=== PATIENT | female | born 1955 | race Caucasian/White ===

== ENCOUNTER 2019-01-06 09:42 | Observation (INO) | payer OTHER ==
[2019-01-06] MEDS ORDERED: NITROGLYCERIN 0.4 MG/TAB SL ONE (10:09)
[2019-01-06 10:16] LABS: Absolute Lymphocytes (CBC) 1.1 K/uL (0.7-4.9); Basophils % 0.5 % (0-1.3); Hematocrit 41.2 % (36.0-45.0); Lymphocytes % 17.5 % (15.3-44.8); MPV 8.1 fL (7.6-11.3)
[2019-01-06 10:42] LABS: ALT/SGPT 16 U/L (12-78); AST/SGOT 12 U/L (15-37); Albumin 3.5 g/dL (3.4-5.0); Alkaline Phosphatase 114 U/L (45-117); BUN Blood Urea Nitrogen 10 mg/dL (7-18); Bicarbonate 27 mmol/L (21-32); Bilirubin Direct 0.1 mg/dL (0-0.2); Bilirubin Total 0.5 mg/dL (0.2-1.0); Glucose Level 132 mg/dL (74-106); Lipase 164 U/L (73-393); NT PRO-BNP 170 pg/mL (<125); Potassium 3.8 mmol/L (3.5-5.1); Protein, Total 6.8 g/dL (6.4-8.2); Sodium Level 142 mmol/L (136-145); Troponin (Emerg Dept Use Only) < 0.02 ng/mL (0.0-0.045)
--- NOTE | 2019-01-06 11:10 | RAD REPORT ---
EXAM DESCRIPTION: [place] Single View01/06/2019 10:40 am CLINICAL HISTORY: Chest pain COMPARISON: none FINDINGS: The lungs appear clear of acute infiltrate. The heart is normal size IMPRESSION: No acute abnormalities displayed
--- NOTE | 2019-01-06 11:11 | ER ---
Nurse's Notes [facility] Name: Jessi Silva Age: 63 yrs Sex: Female : 1955 Arrival Date: 01/06/2019 Time: 09:42 Bed 4 Private MD: Cydney Kelly K Diagnosis: Chest pain, unspecified Presentation: 01/06 09:51 Presenting complaint: Patient states: Chest pain that began this morning. Transition of ss care: patient was not received from another setting of care. Onset of symptoms was January 06, 2019. Risk Assessment: Do you want to hurt yourself or someone else? Patient reports no desire to harm self or others. Initial Sepsis Screen: Does the patient meet any 2 criteria? No. Patient's initial sepsis screen is negative. Does the patient have a suspected source of infection? No. Patient's initial sepsis screen is negative. Care prior to arrival: None. 09:51 Acuity: EROS 3 ss 09:51 Method Of Arrival: Wheelchair ss Historical: - Allergies: 09:53 No Known Allergies; ss - PMHx: 10:13 Diaphragmatic Hernia; sg - PSHx: 10:13 Hernia repair; sg - Immunization history:: Adult Immunizations up to date. - Ebola Screening: : Patient denies exposure to infectious person Patient denies travel to an Ebola-affected area in the 21 days before illness onset. - Family history:: not pertinent. - Social history:: Smoking status: Patient/guardian denies using tobacco. - Hospitalizations: : No recent hospitalization is reported. Screenin:00 Abuse screen: Denies threats or abuse. Denies injuries from another. Nutritional sg screening: No deficits noted. Tuberculosis screening: No symptoms or risk factors identified. Never had TB. Fall Risk None identified. Assessment: 09:55 General: Appears in no apparent distress. well groomed, well developed, well nourished, sg Behavior is cooperative, appropriate for age, anxious. Pain: Complains of pain in anterior aspect of left upper chest Quality of pain is described as aching, sharp. Neuro: Level of Consciousness is awake, alert, obeys commands, Oriented to person, place, time, situation, Platform Attendant are equal bilaterally Moves all extremities. Full function Gait is steady, Speech is normal, Facial symmetry appears normal. Cardiovascular: Capillary refill is brisk in bilateral fingers Patient's skin is warm and dry. Chest pain is denied. Cardiovascular: Reports chest pain, lightheadedness, Heart tones S1 S2 present. Respiratory: Airway is patent Respiratory effort is even, unlabored, Respiratory pattern is regular, symmetrical. GI: Abdomen is round non-distended. : No signs and/or symptoms were reported regarding the genitourinary system. EENT: No signs and/or symptoms were reported regarding the EENT system. Derm: Skin is pink, warm \T\ dry. Musculoskeletal: Circulation, motion, and sensation intact. Range of motion: intact in all extremities. 10:08 Reassessment: Patient appears in no apparent distress at this time. order to sg repeat VS, if pressures consistent with 10 AM readings then administer Nitro as ordered, VS to be reassessed prior to administration. 10:22 Reassessment: Patient appears in no apparent distress at this time. pt medicated as sg ordered, See EMAR, XRAY at bedside. 10:30 Reassessment: Patient appears in no apparent distress at this time. Patient and/or sg family updated on plan of care and expected duration. Pain level reassessed. Patient is alert, oriented x 3, equal unlabored respirations, skin warm/dry/pink. pt reports feeling dizzy, notified of pt VS, orders received, see EMAR, will continue to monitor. 11:00 Reassessment: Patient appears in no apparent distress at this time. Patient and/or sg family updated on plan of care and expected duration. Pain level reassessed. Patient is alert, oriented x 3, equal unlabored respirations, skin warm/dry/pink. Patient states feeling better. 11:50 Reassessment: Patient appears in no apparent distress at this time. Patient and/or sg family updated on plan of care and expected duration. Pain level reassessed. awaiting a bed assignment at this time. 12:40 Reassessment: Patient appears in no apparent distress at this time. Patient and/or sg family updated on plan of care and expected duration. Pain level reassessed. Patient is alert, oriented x 3, equal unlabored respirations, skin warm/dry/pink. pt informed of room assignment, awaiting a call back from receiving nurse, will continue to monitor. Vital Signs: 09:51 BP 138 / 85; Pulse 81; Resp 18; Temp 97.4(TE); Pulse Ox 99% on R/A; ss 10:00 BP 118 / 62; Pulse 77; Resp 16; Temp 97.6; Pulse Ox 100% on R/A; Pain 6/10; sg 10:18 BP 127 / 72; Pulse 68; Resp 17; Pulse Ox 100% on R/A; sg 10:30 BP 75 / 46; Pulse 57; Resp 17; Pulse Ox 98% ; sg 10:56 BP 90 / 64; Pulse 66; ss 11:07 BP 128 / 83 RA (/reg); Pulse 68; Resp 16 S; Temp 97.6; Pulse Ox 100% ; sg 11:20 BP 133 / 79; Pulse 69; Resp 17; Pulse Ox 98% on R/A; Pain 4/10; sg ED Course: 09:42 Patient arrived in ED. as 09:43 Cydney Kelly MD is Private Physician. as 09:44 Wild Putnam MD is Attending Physician. rn 09:44 Ronn Melgoza RN is Primary Nurse. sg 09:51 Arm band placed on right wrist. ss 09:52 Triage completed. ss 09:58 EKG done, by ED staff, reviewed by Wild Putnam MD. ms 10:00 Patient has correct armband on for positive identification. Bed in low position. Call sg light in reach. Side rails up X2. Pulse ox on. NIBP on. 10:00 Initial lab(s) drawn, by me, sent to lab. Inserted saline lock: 22 gauge in right sg antecubital area, using aseptic technique. Blood collected. 10:41 XRAY Chest (1 view) In Process Unspecified. EDMS 10:50 IV discontinued, intact, bleeding controlled, No redness/swelling at site. Pressure sg dressing applied. 10:52 Inserted saline lock: 22 gauge in left upper arm, using aseptic technique. Blood sg collected. 11:09 Armani Lynn MD is Hospitalizing Provider. rn 11:39 Admitting physician to see patient. at bedside. sg 12:27 Assisted to bathroom. sg 12:45 No provider procedures requiring assistance completed. sg Administered Medications: 10:18 Drug: Nitroglycerin 0.4 mg Route: Sublingual; sg 10:30 Follow up: Response: Blood pressure is lowered; notified of pt VS, orders sg recieved see EMAR 10:52 Drug: NS 0.9% 500 ml Route: IV; Rate: bolus; Site: left upper arm; sg 11:35 Follow up: Response: No adverse reaction; Blood pressure is elevated; IV Status: sg Completed infusion; IV Intake: 500ml 11:10 Drug: Aspirin Chewable Tablet 324 mg Route: PO; sg 11:41 Follow up: Response: No adverse reaction sg Intake: 11:35 IV: 500ml; Total: 500ml. sg Outcome: 11:09 Decision to Hospitalize by Provider. rn 13:35 Patient left the ED. sg Signatures: Dispatcher [employer] EDMS Ronn Melgoza RN RN Janet Warren Maria ms Wild Putnam MD MD rn Smirch, Shelby, RN RN ss
--- NOTE | 2019-01-06 11:11 | EDPHYS ---
Physician Documentation [facility] Name: Jessi Silva Age: 63 yrs Sex: Female : 1955 Arrival Date: 01/06/2019 Time: 09:42 Bed 4 Private MD: Cydney Kelly K ED Physician Wild Putnam HPI: 01/06 09:55 This 63 yrs old Female presents to ER via Wheelchair with complaints of Chest rn Pain. 09:55 The patient or guardian reports chest pain that is located primarily in the substernal rn area. Onset: this morning. The pain radiates to the left arm. Associated signs and symptoms: Pertinent positives: nausea, vomiting. The chest pain is described as a pressure, squeezing. Duration: The patient or guardian reports a single episode, that is still ongoing. Modifying factors: The symptoms are alleviated by nothing. the symptoms are aggravated by nothing. Severity of pain: At its worst the pain was moderate in the emergency department the pain is unchanged. The patient has not experienced similar symptoms in the past. The patient has not recently seen a physician. Reports chest pain/tightness, began this morning, after waking up, 8/10, radiates to left shoulder, reports had left shoulder pain yesterday got better with tylenol. Did have procedure for diaphragmatic hernia 3 weeks ago, but has been doing fine. No leg swelling or hx of DVT/PE.. Historical: - Allergies: 09:53 No Known Allergies; ss - PMHx: 10:13 Diaphragmatic Hernia; sg - PSHx: 10:13 Hernia repair; sg - Immunization history:: Adult Immunizations up to date. - Ebola Screening: : Patient denies exposure to infectious person Patient denies travel to an Ebola-affected area in the 21 days before illness onset. - Family history:: not pertinent. - Social history:: Smoking status: Patient/guardian denies using tobacco. - Hospitalizations: : No recent hospitalization is reported. ROS: 09:55 Constitutional: Negative for fever, chills, and weight loss, Eyes: Negative for injury, rn pain, redness, and discharge, Neck: Negative for injury, pain, and swelling, Cardiovascular: + chest pain Respiratory: Negative for shortness of breath, cough, wheezing, and pleuritic chest pain, Abdomen/GI: Negative for abdominal pain, diarrhea, and constipation, MS/Extremity: Negative for injury and deformity, Skin: Negative for injury, rash, and discoloration, Neuro: Negative for headache, weakness, numbness, tingling, and seizure. Exam: 09:55 Constitutional: This is a well developed, well nourished patient who is awake, alert, rn appears uncomfortable Head/Face: Normocephalic, atraumatic. ENT: MMM Cardiovascular: Regular rate and rhythm. No pulse deficits. Respiratory: Clear bilaterally. No increased work of breathing, no retractions or nasal flaring. Abdomen/GI: soft, non-tender MS/ Extremity: Pulses equal, no cyanosis. Neurovascular intact. Full, normal range of motion. Equal circumference. Neuro: Awake and alert, GCS 15, oriented to person, place, time, and situation. Cranial nerves II-XII grossly intact. Motor strength 5/5 in all extremities. Sensory grossly intact. 11:02 ECG was reviewed by the Attending Physician. rn Vital Signs: 09:51 BP 138 / 85; Pulse 81; Resp 18; Temp 97.4(TE); Pulse Ox 99% on R/A; ss 10:00 BP 118 / 62; Pulse 77; Resp 16; Temp 97.6; Pulse Ox 100% on R/A; Pain 6/10; sg 10:18 BP 127 / 72; Pulse 68; Resp 17; Pulse Ox 100% on R/A; sg 10:30 BP 75 / 46; Pulse 57; Resp 17; Pulse Ox 98% ; sg 10:56 BP 90 / 64; Pulse 66; ss 11:07 BP 128 / 83 RA (/reg); Pulse 68; Resp 16 S; Temp 97.6; Pulse Ox 100% ; sg 11:20 BP 133 / 79; Pulse 69; Resp 17; Pulse Ox 98% on R/A; Pain 4/10; sg MDM: 09:44 Patient medically screened. rn 11:06 Differential diagnosis: acute myocardial infarction, coronary artery disease chest wall rn pain, costochondritis, esophagitis, gastritis, gastroesophageal reflux disease (GERD), pericarditis, pleurisy, pneumothorax, stable angina, unstable angina. The patient was given aspirin in the Emergency Department. Data reviewed: vital signs, nurses notes, and as a result, I will admit patient. 11:07 Counseling: I had a detailed discussion with the patient and/or guardian regarding: the rn historical points, exam findings, and any diagnostic results supporting the discharge/admit diagnosis, lab results, radiology results, the need for further work-up and treatment in the hospital. Response to treatment: the patient's symptoms have mildly improved after treatment, and as a result, I will admit patient. Admission orders: after a detailed discussion of the patient's condition and case, the admit orders are written by me. ED course: Pt with slight improvement of chest pain with nitro, but extremely sensitive, BP dropped from 120s to 60s, with diaphoresis, will admit to Dr. yLnn for further eval of chest pain.. 01/06 09:54 Order name: Basic Metabolic Panel; Complete Time: 10:49 01/06 09:54 Order name: CBC with Diff; Complete Time: : 01/06 09:54 Order name: LFT's; Complete Time: 10: 01/06 09:54 Order name: NT PRO-BNP; Complete Time: 10: 01/06 09:54 Order name: Troponin (emerg Dept Use Only); Complete Time: 10:49 01/06 09:54 Order name: Lipase; Complete Time: 10:49 01/06 09:54 Order name: XRAY Chest (1 view); Complete Time: 11:16 01/06 09:54 Order name: EKG; Complete Time: 09:55 01/06 11:19 Order name: CONS Physician Consult [facility] 01/06 11:19 Order name: Echo with Doppler [facility] 01/06 12:30 Order name: CT [facility] 01/06 09:54 Order name: Cardiac monitoring; Complete Time: :58 01/06 09:54 Order name: EKG - Nurse/Tech; Complete Time: :58 01/06 09:54 Order name: IV Saline Lock; Complete Time: : 01/06 09:54 Order name: Labs collected and sent; Complete Time: :58 01/06 09:54 Order name: O2 Per Protocol; Complete Time: :58 01/06 09:54 Order name: O2 Sat Monitoring; Complete Time: : 01/06 11:19 Order name: [facility] Healthy [facility] EC:02 Rate is 71 beats/min. Rhythm is regular. QRS Meta is Normal. SC interval is normal. QRS rn interval is normal. QT interval is normal. No Q waves. T waves are Normal. No ST changes noted. Clinical impression: Normal ECG. Interpreted by me. Reviewed by me. Administered Medications: 10:18 Drug: Nitroglycerin 0.4 mg Route: Sublingual; sg 10:30 Follow up: Response: Blood pressure is lowered; notified of pt VS, orders sg recieved see EMAR 10:52 Drug: NS 0.9% 500 ml Route: IV; Rate: bolus; Site: left upper arm; sg 11:35 Follow up: Response: No adverse reaction; Blood pressure is elevated; IV Status: sg Completed infusion; IV Intake: 500ml 11:10 Drug: Aspirin Chewable Tablet 324 mg Route: PO; sg 11:41 Follow up: Response: No adverse reaction sg Disposition: 01/06/19 11:09 Hospitalization ordered by Armani Lynn for Observation. Preliminary diagnosis is Chest pain, unspecified. - Bed requested for Telemetry/MedSurg (observation). - Status is Observation. sg - Condition is Stable. - Problem is new. - Symptoms have improved. UTI on Admission? No Signatures: Dispatcher [employer] EDMS Ronn Melgoza RN RN Wild Putnam MD MD rn Smirch, Shelby RN CARY Gómez Regan RN RN ja1 Corrections: (The following items were deleted from the chart) 12:35 11:09 Hospitalization Ordered by Armani Lynn MD for Observation. Preliminary ja1 diagnosis is Chest pain, unspecified. Bed requested for Telemetry/MedSurg (observation). Status is Observation. Condition is Stable. Problem is new. Symptoms have improved. UTI on Admission? No. rn 13:35 12:35 01/06/2019 11:09 Hospitalization Ordered by Armani Lynn MD for Observation. sg Preliminary diagnosis is Chest pain, unspecified. Bed requested for Telemetry/MedSurg (observation). Status is Observation. Condition is Stable. Problem is new. Symptoms have improved. UTI on Admission? No. ja1
[2019-01-06] MEDS ORDERED: ASPIRIN 81 MG CHEWABLE TABLET ONE (11:15)
--- NOTE | 2019-01-06 11:58 | P.HP ---
Certification for Inpatient Patient admitted to: Observation With expected LOS: <2 Midnights Practitioner: I am a practitioner with admitting privileges, knowledge of patient current condition, hospital course, and medical plan of care. Services: Services provided to patient in accordance with Admission requirements found in Title 42 Section 412.3 of the Code of Federal Regulations Patient History Date of Service: 01/06/19 Reason for admission: Chest pain History of Present Illness: Patient is 63 years of age admitted with chest tightness came on suddenly apparently she had a links procedure done for diaphragmatic hernia on December 13 complaining of feeling clammy week denies any chest pain patient had a cardiac workup done prior to the operation which included a stress test that was unremarkable any risk factors for coronary artery disease no history of diabetes hypertension no prior history of chest pain denies any history of dysphagia - Past Medical/Surgical History -: Of diaphragmatic hernia -: Linx procedure for medic hernia repair on December 13, 2018 Review of Systems 10-point ROS is otherwise unremarkable Physical Examination - Vital Signs Temperature: 97.4 F Blood Pressure: 138/85 Pulse: 81 Respirations: 18 Pulse Ox (%): 99 - Physical Exam General: Alert, Oriented x3 HEENT: Atraumatic Neck: Supple Respiratory: Clear to auscultation bilaterally, Normal air movement Cardiovascular: No edema, Normal pulses, Regular rate/rhythm Gastrointestinal: Normal bowel sounds, Soft and benign, Non-distended, No tenderness - Studies Laboratory Data (last 24 hrs) 01/06/19 10:00: WBC 6.1, Hgb 14.0, Hct 41.2, Plt Count 172 01/06/19 10:00: Sodium 142, Potassium 3.8, BUN 10, Creatinine 0.69, Glucose 132 H, Total Bilirubin 0.5, AST 12 L, ALT 16, Alkaline Phosphatase 114, Lipase 164 Assessment and Plan - Problems (Diagnosis) (1) Chest discomfort Current Visit: Yes Status: Acute Plan: Patient is 63 years of age admitted with sudden onset of chest discomfort for prior history of coronary artery disease no risk factors does not smoke nor diabetes or hypertension. Patient recently had a links procedure done on December 13, 2018 for diaphragmatic hernia repair. She denies any dysphagia or reflux patient's chest x-ray is normal I have ordered a CT pulmonary angiogram rule out thromboembolism due to his recent surgery denies any abdominal disc - Advance Directives Does patient have a Living Will: No Does patient have a Durable POA for Healthcare: No
--- NOTE | 2019-01-06 12:27 | RAD REPORT ---
EXAM DESCRIPTION: CT - Chest Angio - 01/06/2019 12:09 pm CLINICAL HISTORY: Chest pain COMPARISON: None. TECHNIQUE: Dynamically enhanced axial 3 mm thick images of the chest were obtained during administra tion of <100> mL Isovue 370 IV contrast. Coronal and oblique reconstruction images were generated and reviewed. Exam utilizes a protocol for optimal evaluation of pulmonary arterial tree. Maximum intensity projections 3D imaging was utilized All CT scans are performed using dose optimization technique as appropriate and may include automated exposure control or mA/KV adjustment according to patient size. FINDINGS: A pulmonary embolus is not seen. A thoracic aortic aneurysm is not noted. Small left pleural effusion. . A pericardial effusion is not seen. Mild ground-glass opacities within the lingula. Minimal left lower lobe atelectasis IMPRESSION: Negative for a pulmonary embolism. Mild ground-glass opacity within the lingula indicates mild alveolitis
[2019-01-06] MEDS ORDERED: LORAZEPAM 0.5 MG TABLET PO PRN (13:53)
[2019-01-06] MEDS: ACETAMINOPHEN 500 MG TAB PO PRN (14:02)
[2019-01-06 14:23] VITALS: BMI 27.4
[2019-01-06] MEDS ORDERED: TRAMADOL HCL 50 MG TAB PO PRN (15:35)
[2019-01-07] MEDS: ACETAMINOPHEN 500 MG TAB PO PRN ×2 (04:16→17:11)
[2019-01-07 06:27] LABS: Hematocrit 37.2 % (36.0-45.0); MPV 8.5 fL (7.6-11.3); RBC Red Blood Cell Count 4.32 M/uL (3.86-4.86)
[2019-01-07 06:44] LABS: BUN Blood Urea Nitrogen 8 mg/dL (7-18); Bicarbonate 27 mmol/L (21-32); Glucose Level 97 mg/dL (74-106); Potassium 3.9 mmol/L (3.5-5.1); Sodium Level 140 mmol/L (136-145)
[2019-01-07] MEDS: ASPIRIN EC 81 MG TAB PO SCH (08:42)
--- NOTE | 2019-01-07 09:12 | EKG ---
Test Date: 2019-01-06 Test Time: 09:52:08 Superintendent Storage Area: SWG MEASUREMENT RESULTS: Intervals: Rate: 71 TX: 140 QRSD: 80 QT: 384 QTc: 417 [place]: P: 58 TX: 140 QRS: 2 T: 43 INTERPRETIVE STATEMENTS: Normal sinus rhythm Normal ECG Compared to ECG 10/03/2017 11:24:21 No significant changes Electronically Signed On 01-07-19 09:11:48 SUPPLY CHAIN DEVELOPMENT MANAGER by Aubrey Lindsay
--- NOTE | 2019-01-07 12:37 | RAD REPORT ---
EXAM DESCRIPTION: RAD - Chest Pa And Lat (2 Views) - 01/07/2019 7:09 am CLINICAL HISTORY: ches tpain Chest pain. COMPARISON: Chest Single View dated 01/06/2019; Chest Angio dated 01/06/2019 FINDINGS: Minimal right and a small left pleural effusion is present. Diffuse emphysematous changes are present. The heart is mildly enlarged in size. No displaced fractures.
[2019-01-08 05:56] VITALS: O2SAT 99
[2019-01-08] MEDS: ASPIRIN EC 81 MG TAB PO SCH (08:20)
[2019-01-08] MEDS ORDERED: AMLODIPINE 2.5 MG TAB PO SCH ×2 (09:00→13:46)
[2019-01-08 09:23] VITALS: TEMP 97.8
[2019-01-08 13:15] VITALS: BP 119/65
--- NOTE | 2019-01-08 17:27 | P.SSS ---
Patient History Date of Service: 01/08/19 Reason for admission: Chest pain History of Present Illness: Patient is 63 years of age admitted with chest tightness came on suddenly apparently she had a links procedure done for diaphragmatic hernia on December 13 complaining of feeling clammy week denies any chest pain patient had a cardiac workup done prior to the operation which included a stress test that was unremarkable any risk factors for coronary artery disease no history of diabetes hypertension no prior history of chest pain denies any history of dysphagia Allergies No Known Allergies Allergy (Verified 01/06/19 13:47) Home Medications: Amlodipine [Norvasc*] 2.5 mg PO DAILY #30 tab 01/08/19 - Past Medical/Surgical History Diabetic: No -: Of diaphragmatic hernia -: Linx procedure for medic hernia repair on December 13, 2018 - Family History Father History Unknown: Yes Mother Notes: kiran - Social History Smoking Status: Never smoker Alcohol use: No CD- Drugs: No Caffeine use: Yes Place of Residence: Home Review of Systems 10-point ROS is otherwise unremarkable Physical Examination - Vital Signs Temperature: 97.8 F Blood Pressure: 119/65 Pulse: 82 Respirations: 15 Pulse Ox (%): 96 - Physical Exam General: Alert, In no apparent distress HEENT: Atraumatic, PERRLA, Mucous membr. moist/pink, EOMI, Sclerae nonicteric Neck: Supple, 2+ carotid pulse no bruit, No LAD, Without JVD or thyroid abnormality Respiratory: Clear to auscultation bilaterally, Normal air movement Cardiovascular: Regular rate/rhythm, Normal S1 S2 Gastrointestinal: Normal bowel sounds, No tenderness Musculoskeletal: No tenderness Integumentary: No rashes Neurological: Normal gait, Normal speech, Normal strength at 5/5 x4 extr, Normal tone, Normal affect Lymphatics: No axilla or inguinal lymphadenopathy - Diagnosis (Problem(s)) (1) Esophageal spasm Status: Acute (2) Chest discomfort Status: Acute Treatment Summary: Overall during the hospital stay patient remained stable Patient initially came to the hospital for chest pain ACS rule out. Lab work and imaging study was done here in the hospital. Troponin x3 remained negative. Patient recently had an X Link placed between her diaphragm and esophagus. At [facility]. And GI doctor iMchel was consulted at [facility] initially for potential transfer. Dr. Michel during however recommended the patient can be started on low-dose amlodipine for possible esophageal spasms. After patient was started on low-dose amlodipine patient had marked improvement in her symptoms. At that time patient was discharged home for outpatient follow up with her GI doctor at [facility]. - Disposition Disposition: ROUTINE DISCHARGE Condition: GOOD Patient Discharge Instructions: Patient to be transferred to [facility] under the care of a GI physician Diet: Regular Activity: Ad bárbara
== END 2019-01-08 12:22 | disposition home or self-care (01) ==
LOC: SUPCPDRO 09:42 → ER 09:42 → ERHOLD 11:16 → 2ND 13:19
PROVIDERS: ADMIT Internal Medicine Sleep Medicine; ATTEND Family Medicine
DX: K22.4 Dyskinesia of esophagus (principal); R07.89 Other chest pain
CPT/HCPCS: 93005; 85025; 80048 ×2; 36415; 80076; 85027; 84484; 83690; 83880; 71275; 71045; 71046; 96360; 99284; Q9967; G0378 ×4

== ENCOUNTER 2019-02-20 15:40 | Inpatient (IN) | payer OTHER ==
[2019-02-20] MEDS ORDERED: MAGNE/ALUM HYDROXD 30 ML UCUP ONE (16:39)
[2019-02-20] MEDS ORDERED: LIDOCAINE VISCOUS 2% SOLN 15 ML UDC ONE (16:39)
--- NOTE | 2019-02-20 17:01 | RAD REPORT ---
EXAM DESCRIPTION: RAD - Chest Single View - 02/20/2019 4:40 pm CLINICAL HISTORY: COUGH Chest pain. COMPARISON: Chest Pa And Lat (2 Views) dated 01/07/2019; Chest Single View dated 01/06/2019 FINDINGS: Portable technique limits examination quality. Small bilateral pleural effusions are seen. The heart is moderately enlarged in size. No displaced fr actures. IMPRESSION: Moderate cardiomegaly. Small bilateral pleural effusions.
[2019-02-20 17:34] LABS: Absolute Lymphocytes (CBC) 0.9 K/uL (0.7-4.9); Basophils % 0.3 % (0-1.3); Hematocrit 41.1 % (36.0-45.0); Lymphocytes % 5.8 % (15.3-44.8); MPV 7.4 fL (7.6-11.3)
[2019-02-20] MEDS ORDERED: ONDANSETRON 4 MG/2 ML VIAL ONE (17:36)
[2019-02-20 17:37] LABS: Protime INR 1.23
[2019-02-20 17:51] LABS: ALT/SGPT 17 U/L (12-78); AST/SGOT 8 U/L (15-37); Albumin 3.4 g/dL (3.4-5.0); Alkaline Phosphatase 107 U/L (45-117); BUN Blood Urea Nitrogen 15 mg/dL (7-18); Bicarbonate 27 mmol/L (21-32); Bilirubin Total 0.8 mg/dL (0.2-1.0); Glucose Level 135 mg/dL (74-106); Magnesium 2.4 mg/dL (1.8-2.4); NT PRO-BNP 705 pg/mL (<125); Potassium 3.6 mmol/L (3.5-5.1); Protein, Total 7.5 g/dL (6.4-8.2); Sodium Level 135 mmol/L (136-145); Troponin (Emerg Dept Use Only) < 0.02 ng/mL (0.0-0.045)
--- NOTE | 2019-02-20 18:29 | RAD REPORT ---
EXAM DESCRIPTION: CT - Chest For Pe Angio - 02/20/2019 6:14 pm CLINICAL HISTORY: Chest pain. elevated ddimer, chest pain COMPARISON: Chest Angio dated 01/06/2019 TECHNIQUE: CT angiogram of the pulmonary arteries was performed with MIP. All CT scans are performed using dose optimization technique as appropriate and may include automated exposure control or mA/KV adjustment according to patient size. FINDINGS: No evidence of pulmonary thromboembolism. No acute aortic finding demonstrated. Moderate subsegmental atelectasis is present in both lung bases. Small bilateral pleural effusions, slightly greater on the right. Moderate pericardial effusion. No concerning bony finding. IMPRESSION: No evidence of pulmonary thromboembolism. Mild subsegmental atelectasis in both lung bases. Small bilateral pleural effusions with moderate pericardial effusion.
[2019-02-20 18:46] LABS: Blood Morphology Comment NOT SEEN (NOT SEEN); Platelet Estimate ADEQ; Urine White Blood Cell Casts OK
--- NOTE | 2019-02-20 18:53 | ER ---
Nurse's Notes [facility] Name: Jessi Silva Age: 63 yrs Sex: Female : 1955 Arrival Date: 02/20/2019 Time: 15:41 Bed 15 Private MD: Diagnosis: Chest pain Presentation: 02/20 15:44 Presenting complaint: Upper chest pain, nausea, and SOB since yesterday. Transition of care: patient was not received from another setting of care. Onset of symptoms was February 19, 2019. Risk Assessment: Do you want to hurt yourself or someone else? Patient reports no desire to harm self or others. Initial Sepsis Screen: Does the patient meet any 2 criteria? No. Patient's initial sepsis screen is negative. Does the patient have a suspected source of infection? No. Patient's initial sepsis screen is negative. Care prior to arrival: None. 15:44 Method Of Arrival: Wheelchair 15:44 Acuity: EROS 3 hb Triage Assessment: 16:00 General: Appears in no apparent distress. comfortable, Behavior is cooperative, bp appropriate for age, anxious. Pain: Complains of pain in chest. EENT: No deficits noted. Neuro: No deficits noted. Cardiovascular: Rhythm is sinus rhythm. Respiratory: Reports shortness of breath. GI: No signs and/or symptoms were reported involving the gastrointestinal system. : No signs and/or symptoms were reported regarding the genitourinary system. Derm: No deficits noted. Musculoskeletal: No deficits noted. Historical: - Allergies: 15:47 No Known Allergies; hb - Home Meds: 15:47 Zoloft Oral [Active]; hb - PMHx: 15:47 diaphragmatic hernia; hb - PSHx: 15:47 Hernia repair; hb - Immunization history:: Adult Immunizations up to date. - Social history:: Smoking status: Patient/guardian denies using tobacco. - Ebola Screening: : No symptoms or risks identified at this time. Screenin:00 Abuse screen: Denies threats or abuse. Denies injuries from another. Nutritional bp screening: No deficits noted. Tuberculosis screening: No symptoms or risk factors identified. Fall Risk None identified. Assessment: 16:00 General: SEE TRIAGE NOTE. Pain: Pain does not radiate. Pain began 1 day ago. bp 16:55 Reassessment: ALL HEALTH CARE ACTIVITIES ON HOLD PER PT REQUEST 2/2 PT ANXIETY. bp 17:26 Reassessment: ALL CURRENT ORDERS COMPLETED, RESULTS PENDING. PT VOMITING, INFORMED. bp 18:06 Reassessment: PT TO CT WITH TEJAS PARIKH. bp 19:00 Reassessment: Patient appears in no apparent distress at this time. Patient and/or jb4 family updated on plan of care and expected duration. Pain level reassessed. Patient is alert, oriented x 3, equal unlabored respirations, skin warm/dry/pink. 20:00 Reassessment: Patient appears in no apparent distress at this time. Patient and/or jb4 family updated on plan of care and expected duration. Pain level reassessed. Patient is alert, oriented x 3, equal unlabored respirations, skin warm/dry/pink. 20:48 Reassessment: Patient appears in no apparent distress at this time. Patient and/or jb4 family updated on plan of care and expected duration. Pain level reassessed. Patient is alert, oriented x 3, equal unlabored respirations, skin warm/dry/pink. Patient states feeling better. 20:55 Reassessment: attempted to give report, instructed to wait 15 minutes and call back. jb4 Vital Signs: 15:46 BP 94 / 77; Pulse 75; Resp 16; Temp 97.7; Pulse Ox 98% on R/A; Weight 74.39 kg; Height hb 5 ft. 5 in. (165.10 cm); Pain 6/10; 16:56 BP 95 / 60; Pulse 79; Resp 16; Pulse Ox 97% ; bp 17:28 BP 142 / 76; Pulse 59; Resp 16; Pulse Ox 96% ; bp 18:06 BP 157 / 82; Pulse 77; Resp 16; Pulse Ox 95% ; bp 19:00 BP 107 / 55; Pulse 74; Resp 18; Pulse Ox 95% on R/A; jb4 20:30 BP 100 / 51; Pulse 70; Resp 16; Temp 98.3(O); Pulse Ox 95% on R/A; jb4 21:30 BP 99 / 53; Pulse 70; Resp 18; Pulse Ox 94% on R/A; jb4 15:46 Body Mass Index 27.29 (74.39 kg, 165.10 cm) hb ED Course: 15:41 Patient arrived in ED. as 15:46 Triage completed. hb 15:46 Arm band placed on. hb 15:56 Óscar Vasquez MD is Attending Physician. ps1 15:56 EKG done, by cardiac cath technician. reviewed by Wallace Pratt MD. at1 16:00 Patient has correct armband on for positive identification. Bed in low position. Call bp light in reach. Side rails up X2. Adult w/ patient. sugar trucker on. Pulse ox on. NIBP on. 16:01 Addis Galindo, RN is Primary Nurse. iw 16:41 XRAY Chest (1 view) In Process Unspecified. EDMS 17:20 Inserted saline lock: 22 gauge in left forearm, using aseptic technique. Blood bp collected. Patient maintains SpO2 saturation greater than 95% on room air. 18:14 CT completed. Patient tolerated procedure well. Patient moved to CT via stretcher. nv Patient moved back from CT. 18:15 CT Chest For PE Angio In Process Unspecified. EDMS 18:52 Daniel Guzman, RN is Primary Nurse. bp 18:52 Mone Fowler MD is Hospitalizing Provider. ps1 18:57 Primary Nurse role handed off by Daniel Guzman, CARY jb4 18:57 Steffen Avendano, CARY is Primary Nurse. jb4 21:45 No provider procedures requiring assistance completed. Patient admitted, IV remains in jb4 place. Administered Medications: 17:15 Drug: GI Cocktail without - (Maalox Suspension 30 ml, Lidocaine Liquid 2 % 15 bp ml) Route: PO; 17:36 Follow up: Response: Nausea unchanged bp 17:36 Drug: Zofran 4 mg Route: IVP; Site: left forearm; bp 18:05 Follow up: Response: Nausea is decreased bp 20:17 Drug: Tylenol 650 mg Route: PO; jb4 20:52 Follow up: Response: No adverse reaction; Pain is decreased jb4 20:18 Drug: Benadryl 25 mg Route: IVP; Site: left forearm; jb4 20:53 Follow up: Response: No adverse reaction; Pain is decreased jb4 20:19 Drug: Reglan 10 mg Route: IVP; Site: left forearm; jb4 20:54 Follow up: Response: No adverse reaction; Pain is decreased jb4 Outcome: 18:52 Decision to Hospitalize by Provider. ps1 21:45 Admitted to Med/surg accompanied by tech, via stretcher, room 204, with chart, Report jb4 called to CARY [place] 21:47 Condition: stable jb4 21:47 Discharge instructions given to patient, family, Instructed on the need for admit, Demonstrated understanding of instructions. 22:27 Patient left the ED. jb4 Signatures: Dispatcher [employer] Janet Carson Irene, RN RN iw Diane St, fluid dynamicist EKG Tat1 La Sequeira RN RN Steffen Avendano RN RN jb4 Brennan Elliott Brian, RN RN bp Óscar Vasquez MD MD ps1 Corrections: (The following items were deleted from the chart) 17:37 17:26 Reassessment: ALL CURRENT ORDERS COMPLETED, RESULTS PENDING. VS STABLE ON MONITOR bp bp
--- NOTE | 2019-02-20 18:53 | EDPHYS ---
Physician Documentation [facility] Name: Jessi Silva Age: 63 yrs Sex: Female : 1955 Arrival Date: 02/20/2019 Time: 15:41 Bed 15 Private MD: ED Physician Óscar Vasquez HPI: 02/20 18:44 This 63 yrs old Female presents to ER via Wheelchair with complaints of Chest ps1 Tightness, Shortness Of Breath. 18:44 patient has had non-specific chest pain that has been going on for a couple of weeks ps1 but has worsened over the last couple of days. Patient states that she was previously diagnosed with esophageal spasm and prescribed Levsin and amlodipine for symptoms. Patient states that she took the medications as prescribed but it did not remit the symptoms and precipitated a headache. She states that the pain is different on this encounter and is localized in the anterior upper chest. No radiation. She has been nauseated without emesis. . Historical: - Allergies: 15:47 No Known Allergies; hb - Home Meds: 15:47 Zoloft Oral [Active]; hb - PMHx: 15:47 diaphragmatic hernia; hb - PSHx: 15:47 Hernia repair; hb - Immunization history:: Adult Immunizations up to date. - Social history:: Smoking status: Patient/guardian denies using tobacco. - Ebola Screening: : No symptoms or risks identified at this time. ROS: 18:44 Constitutional: Negative for fever, chills, and weight loss, Eyes: Negative for injury, ps1 pain, redness, and discharge, Abdomen/GI: Negative for abdominal pain, nausea, vomiting, diarrhea, and constipation, MS/Extremity: Negative for injury and deformity, Skin: Negative for injury, rash, and discoloration, Neuro: Negative for headache, weakness, numbness, tingling, and seizure. 18:44 Cardiovascular: Positive for chest pain, with cough. 18:44 Respiratory: Positive for shortness of breath. Exam: 18:44 Constitutional: This is a well developed, well nourished patient who is awake, alert, ps1 and in no acute distress. Head/Face: Normocephalic, atraumatic. Chest/axilla: Normal chest wall appearance and motion. Nontender with no deformity. No lesions are appreciated. Cardiovascular: Regular rate and rhythm. No gallops, murmurs, or rubs. Normal PMI, no JVD. No pulse deficits. Respiratory: Lungs have equal breath sounds bilaterally, clear to auscultation and percussion. No rales, rhonchi or wheezes noted. No increased work of breathing, no retractions or nasal flaring. Abdomen/GI: Soft, non-tender, with normal bowel sounds. No distension or tympany. No guarding or rebound. No evidence of tenderness throughout. Skin: Warm, dry with normal turgor. Normal color with no rashes, no lesions, and no evidence of cellulitis. MS/ Extremity: Pulses equal, no cyanosis. Neurovascular intact. Full, normal range of motion. Neuro: Awake and alert, GCS 15, oriented to person, place, time, and situation. Cranial nerves II-XII grossly intact. Sensory grossly intact. Vital Signs: 15:46 BP 94 / 77; Pulse 75; Resp 16; Temp 97.7; Pulse Ox 98% on R/A; Weight 74.39 kg; Height hb 5 ft. 5 in. (165.10 cm); Pain 6/10; 16:56 BP 95 / 60; Pulse 79; Resp 16; Pulse Ox 97% ; bp 17:28 BP 142 / 76; Pulse 59; Resp 16; Pulse Ox 96% ; bp 18:06 BP 157 / 82; Pulse 77; Resp 16; Pulse Ox 95% ; bp 19:00 BP 107 / 55; Pulse 74; Resp 18; Pulse Ox 95% on R/A; jb4 20:30 BP 100 / 51; Pulse 70; Resp 16; Temp 98.3(O); Pulse Ox 95% on R/A; jb4 21:30 BP 99 / 53; Pulse 70; Resp 18; Pulse Ox 94% on R/A; jb4 15:46 Body Mass Index 27.29 (74.39 kg, 165.10 cm) hb MDM: 16:06 Patient medically screened. ps1 18:52 Data reviewed: vital signs, nurses notes, lab test result(s), EKG, radiologic studies, ps1 and as a result, I will admit patient. Counseling: I had a detailed discussion with the patient and/or guardian regarding: the historical points, exam findings, and any diagnostic results supporting the discharge/admit diagnosis, lab results, radiology results. 02/20 16:31 Order name: CBC with Diff; Complete Time: 18:51 [facility] 02/20 16:31 Order name: Magnesium; Complete Time: 17:55 [facility] 02/20 16:31 Order name: NT PRO-BNP; Complete Time: 17:55 [facility] 02/20 16:31 Order name: PT-INR; Complete Time: 17:52 [facility] 02/20 16:31 Order name: Troponin (emerg Dept Use Only); Complete Time: 17:55 [facility] 02/20 16:31 Order name: CMP; Complete Time: 17:55 [facility] 02/20 16:31 Order name: Flu; Complete Time: 18:30 [facility] 02/20 16:31 Order name: DD; Complete Time: 17:52 [facility] 02/20 17:39 Order name: CBC Smear Scan; Complete Time: 18:51 [facility] 02/20 19:54 Order name: Lipid Profile [facility] 02/20 19:54 Order name: Lipid Profile [facility] 02/20 19:54 Order name: Troponin I [facility] 02/20 19:54 Order name: Troponin I [facility] 02/20 19:54 Order name: Troponin I [facility] 02/20 15:51 Order name: EKG; Complete Time: 15:52 02/20 15:51 Order name: EKG - Nurse/Tech; Complete Time: 16:26 02/20 16:31 Order name: XRAY Chest (1 view); Complete Time: 17:07 [facility] 02/20 16:31 Order name: Cardiac monitoring; Complete Time: 16:34 [facility] 02/20 16:31 Order name: IV Saline Lock; Complete Time: 17:26 [facility] 02/20 16:31 Order name: Labs collected and sent; Complete Time: 17:26 [facility] 02/20 17:52 Order name: CT Chest For PE Angio; Complete Time: 18:32 [facility] 02/20 19:54 Order name: Heart Healthy [facility] 02/20 19:54 Order name: Echo with Doppler [facility] 02/20 19:54 Order name: EKG Electrocardiogram [facility] 02/20 19:54 Order name: EKG Electrocardiogram [facility] 02/20 16:31 Order name: O2 Per Protocol; Complete Time: 16:34 [facility] 02/20 16:31 Order name: O2 Sat Monitoring; Complete Time: 16:34 ps1 EC:53 Rate is 74 beats/min. Rhythm is regular. QRS [place] is Normal. TX interval is normal. QRS ps1 interval is normal. QT interval is normal. No Q waves. T waves are Flattened in leads I, aVL, V5, V6. No ST changes noted. Clinical impression: NSR w/ Non-specific ST/T Changes. Interpreted by me. Administered Medications: 17:15 Drug: GI Cocktail without - (Maalox Suspension 30 ml, Lidocaine Liquid 2 % 15 bp ml) Route: PO; 17:36 Follow up: Response: Nausea unchanged bp 17:36 Drug: Zofran 4 mg Route: IVP; Site: left forearm; bp 18:05 Follow up: Response: Nausea is decreased bp 20:17 Drug: Tylenol 650 mg Route: PO; jb4 20:52 Follow up: Response: No adverse reaction; Pain is decreased jb4 20:18 Drug: Benadryl 25 mg Route: IVP; Site: left forearm; jb4 20:53 Follow up: Response: No adverse reaction; Pain is decreased jb4 20:19 Drug: Reglan 10 mg Route: IVP; Site: left forearm; jb4 20:54 Follow up: Response: No adverse reaction; Pain is decreased jb4 Disposition: 02/20/19 18:52 Hospitalization ordered by Mone Fowler for Observation. Preliminary diagnosis is Chest pain. - Bed requested for Telemetry/MedSurg (observation). - Status is Observation. jb4 - Condition is Stable. - Problem is new. - Symptoms are unchanged. UTI on Admission? No Signatures: Dispatcher [employer] EDID Sridevi Mcgarry RN RN La Sequeira RN RN Steffen Avendano RN RN jb4 Daniel Guzman RN RN bp Singer, Phillip, MD MD ps1 Corrections: (The following items were deleted from the chart) 20:46 18:52 Hospitalization Ordered by Mone Fowler MD for Observation. Preliminary cg diagnosis is Chest pain. Bed requested for Telemetry/MedSurg (observation). Status is Observation. Condition is Stable. Problem is new. Symptoms are unchanged. UTI on Admission? No. ps1 22:27 20:46 02/20/2019 18:52 Hospitalization Ordered by Mone Fowler MD for Observation. jb4 Preliminary diagnosis is Chest pain. Bed requested for Telemetry/MedSurg (observation). Status is Observation. Condition is Stable. Problem is new. Symptoms are unchanged. UTI on Admission? No. cg
[2019-02-20] MEDS ORDERED: MORPHINE 4 MG/ML SYR IV PRN (19:49)
[2019-02-20] MEDS ORDERED: ALPRAZOLAM 0.25 MG TABLET PO PRN (19:49)
[2019-02-20] MEDS ORDERED: METOCLOPRAMIDE 10 MG/2mL INJ ONE (20:11)
[2019-02-20] MEDS ORDERED: ACETAMINOPHEN 325 MG TABLET ONE (20:11)
[2019-02-20] MEDS ORDERED: DIPHENHYDRAMINE 50 MG/ML VIAL ONE (20:11)
--- NOTE | 2019-02-20 20:53 | EKG ---
Test Date: 2019-02-20 Test Time: 15:53:39 Answering Service Operator: LIZBETH MEASUREMENT RESULTS: Intervals: Rate: 74 WA: 124 QRSD: 76 QT: 392 QTc: 435 Wall: P: 26 WA: 124 QRS: -19 T: 85 INTERPRETIVE STATEMENTS: Normal sinus rhythm Cannot rule out Anterior infarct, age undetermined Abnormal ECG Compared to ECG 01/06/2019 09:52:08 Myocardial infarct finding now present Electronically Signed On 02-20-19 20:52:50 SANDING LINE OPERATOR by Ethan Hollins
[2019-02-20] MEDS: METOPROLOL TAR 50 MG TAB PO SCH (21:00)
[2019-02-20 23:11] VITALS: BMI 27.1
[2019-02-20] MEDS ORDERED: NA CHLORIDE 0.9% 250 ML IV ONE (23:35)
[2019-02-21] MEDS: ACETAMINOPHEN 500 MG TAB PO PRN ×3 (00:01→13:06)
[2019-02-21 05:54] LABS: HDL Cholesterol 45 mg/dL (40-60); LDL Cholesterol, Calculated 60 (<130); Troponin I < 0.02 ng/mL (0.0-0.045)
[2019-02-21] MEDS ORDERED: COLCHICINE 0.6 MG TAB PO ONE (06:11)
[2019-02-21] MEDS: COLCHICINE 0.6 MG TAB PO SCH ×2 (08:30→21:25)
[2019-02-21] MEDS: ASPIRIN EC 81 MG TAB PO SCH (08:31)
[2019-02-21] MEDS: ENOXAPARIN 40 MG/0.4 ML SQ SCH (08:31)
[2019-02-21] MEDS: METOPROLOL TAR 50 MG TAB PO SCH (08:40)
--- NOTE | 2019-02-21 09:54 | P.HP ---
Certification for Inpatient Patient admitted to: Observation With expected LOS: <2 Midnights Patient will require the following post-hospital care: None Practitioner: I am a practitioner with admitting privileges, knowledge of patient current condition, hospital course, and medical plan of care. Services: Services provided to patient in accordance with Admission requirements found in Title 42 Section 412.3 of the Code of Federal Regulations Patient History Date of Service: 02/20/19 Reason for admission: Chest pain rule out acute coronary syndro History of Present Illness: patient is a 63-year-old female came to the hospital with chest discomfort. Pain was mainly in the sternal region at worst when she took a deep breath. It also hurt her when she sat up. she was seen in the emergency room and her workup per revealed that she had a moderate pericardial effusion. She will be admitted to the hospital for an echocardiogram. This way we can assess the degree of the pericardial effusion. Patient also had a procedure performed on her hiatal hernia a few months ago. No complications. She has been doing well since the procedure. Continue medications as prescribed. Allergies No Known Allergies Allergy (Verified 02/20/19 23:12) Home Medications: NK [No Home Meds] 02/20/19 - Past Medical/Surgical History Has patient received pneumonia vaccine in the past: No Diabetic: No -: Of diaphragmatic hernia -: Linx procedure for medic hernia repair on December 13, 2018 - Family History Mother Notes: kiran - Social History Smoking Status: Never smoker Alcohol use: No CD- Drugs: No Place of Residence: Home Review of Systems 10-point ROS is otherwise unremarkable Physical Examination - Vital Signs Temperature: 98.4 F Blood Pressure: 101/57 Pulse: 67 Respirations: 16 Pulse Ox (%): 97 - Physical Exam General: Alert, In no apparent distress, Oriented x3 HEENT: Atraumatic, PERRLA, Mucous membr. moist/pink, EOMI, Sclerae nonicteric Neck: Supple, 2+ carotid pulse no bruit, No LAD, Without JVD or thyroid abnormality Respiratory: Clear to auscultation bilaterally, Normal air movement Cardiovascular: Regular rate/rhythm, Normal S1 S2 Gastrointestinal: Normal bowel sounds, Soft and benign, Non-distended, No tenderness Musculoskeletal: No clubbing, No swelling, No tenderness Integumentary: No rashes Neurological: Normal gait, Normal speech, Normal strength at 5/5 x4 extr, Normal tone, Sensation intact, Cranial nerves 3-12 intact, Normal affect Lymphatics: No axilla or inguinal lymphadenopathy - Studies Laboratory Data (last 24 hrs) 02/20/19 17:20: PT 14.4 H, INR 1.23 02/20/19 17:20: Sodium 135 L, Potassium 3.6, BUN 15, Creatinine 0.89, Glucose 135 H, Magnesium 2.4, Total Bilirubin 0.8, AST 8 L, ALT 17, Alkaline Phosphatase 107 02/20/19 17:20: WBC 16.3 H, Hgb 13.5, Hct 41.1, Plt Count 254 Microbiology Data (last 24 hrs): 02/20/19 17:20 Nasopharnyx Influenza Type A Antigen Screen - Final 02/20/19 17:20 Nasopharnyx Influenza Type B Antigen Screen - Final Assessment & Plan - Problems (Diagnosis) (1) Pericardial effusion Current Visit: Yes Status: Acute (2) Chest discomfort Current Visit: No Status: Acute - Plan 1. Serial troponins and EKG 2. Cardiology consultation 3. Echocardiogram 4. Pain control 5. colchicine for pericarditis symptoms 6. await echocardiogram results prior to disposition Discharge Plan: Home Plan to discharge in: 24 Hours - Advance Directives Does patient have a Living Will: No Does patient have a Durable POA for Healthcare: No Critical Care: No Time Spent Managing PTS Care (In Minutes): 45
--- NOTE | 2019-02-21 10:21 | EKG ---
Test Date: 2019-02-21 Test Time: 08:11:01 Domestic Cleaner: LIZBETH MEASUREMENT RESULTS: Intervals: Rate: 74 CT: 132 QRSD: 72 QT: 372 QTc: 412 Rawlings: P: 60 CT: 132 QRS: 49 T: 50 INTERPRETIVE STATEMENTS: Normal sinus rhythm Normal ECG Compared to ECG 02/20/2019 15:53:39 Myocardial infarct finding no longer present Electronically Signed On 02-21-19 10:19:56 BEVERAGE DISTILLER by Aubrey Lindsay
--- NOTE | 2019-02-21 11:25 | P.PN ---
Subjective Date of Service: 02/21/19 Primary Care Provider: Dr. Kelly; Cardiology-Dr. Sterling([facility]); GI-Dr. Wolf Chief Complaint: Chest pain rule out acute coronary syndro Subjective: Improving (Mild cough noted. No significant respiratory distress.), Doing well Physical Examination - Vital Signs Temperature: 98.4 F Blood Pressure: 101/57 Pulse: 67 Respirations: 16 Pulse Ox (%): 97 - Physical Exam General: Alert, In no apparent distress, Oriented x3, Cooperative HEENT: Atraumatic Neck: Supple Respiratory: Clear to auscultation bilaterally, Normal air movement Cardiovascular: Normal pulses, Regular rate/rhythm Gastrointestinal: Normal bowel sounds, Soft and benign, Non-distended Musculoskeletal: No erythema, No tenderness, No warmth Integumentary: No tenderness/swelling, No erythema, No warmth, No cyanosis Neurological: Normal speech, Normal strength at 5/5 x4 extr, Normal tone, Normal affect - Studies Laboratory Data (last 24 hrs) 02/20/19 17:20: PT 14.4 H, INR 1.23 02/20/19 17:20: Sodium 135 L, Potassium 3.6, BUN 15, Creatinine 0.89, Glucose 135 H, Magnesium 2.4, Total Bilirubin 0.8, AST 8 L, ALT 17, Alkaline Phosphatase 107 02/20/19 17:20: WBC 16.3 H, Hgb 13.5, Hct 41.1, Plt Count 254 Microbiology Data (last 24 hrs): 02/20/19 17:20 Nasopharnyx Influenza Type A Antigen Screen - Final 02/20/19 17:20 Nasopharnyx Influenza Type B Antigen Screen - Final Medications List Reviewed: Yes Assessment & Plan Discharge Plan: Home Plan to discharge in: 24 Hours Physician Review Additional Text: Impression: Chest pain likely pericarditis with noted pericardial effusion Bilateral pleural effusion with atelectasis GERD with history of esophageal spasms Plan: Chest pain likely pericarditis with noted pericardial effusion: Case discussed with cardiology. Will recheck chest x-ray. Will also check pro calcitonin, sed rate, CRP and NATHALIE. Patient off oxygen. No fever noted. Cardiology suspects pericarditis. Continue colchicine. Will start low-dose steroid but likely for just 1-2 days due to her history of GERD. Patient is seen by cardiology at [facility]. 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 Patient with implantable loop recorder. Anticipate improvement over the next 24-48 hr. Likely discharge if clinically improved. Bilateral pleural effusion with atelectasis: Recheck chest x-ray. Will provide incentive spirometer. Will check pro calcitonin. Patient currently off oxygen. GERD with history of esophageal spasms: Will start Protonix. Will discuss with her GI specialist to see what procedures have been done in the past. Time Spent Managing Pts Care (In Minutes): 55
--- NOTE | 2019-02-21 12:50 | RAD REPORT ---
EXAM DESCRIPTION: RAD - Chest Pa And Lat (2 Views) - 02/21/2019 12:44 pm CLINICAL HISTORY: Follow up Bilateral pleural effusions Chest pain. COMPARISON: Chest Single View dated 02/20/2019; Chest Pa And Lat (2 Views) dated 01/07/2019; Chest Sin gle View dated 01/06/2019 FINDINGS: Small bilateral pleural effusions are noted appearing slightly increased in size since the comparative study. Mild subsegmental atelectasis is present in both lung bases. The heart is moderat mari enlarged in size. No displaced fractures.
[2019-02-21] MEDS: PANTOPRAZOLE 40MG TABLET PO SCH (13:04)
[2019-02-21] MEDS: predniSONE 10 MG TAB PO SCH (13:05)
--- NOTE | 2019-02-21 13:25 | CON ---
History Of Present Illness: Ms. Silva is 63. She came to the hospital because of pain. The pain is in her chest. She has had it ever since she had a surgery to repair a large diaphragmatic hernia . She insists it is not a hiatal hernia, but something a little bit different and her surgery was in December. The device was placed in to help keep things patent Linx device. Ever since her surgery, she has had pleuritic chest pain. She has had several efforts to try and relieve the chest pain. N itroglycerin, hyoscyamine, amlodipine have been tried, but nothing seems to help. Before she had her surgery, she had an extensive cardiac workup noninvasive and it indicated that her heart was healthy . She has never had a heart attack, stroke, any vascular surgery. Does not use tobacco, alcohol, or drugs. Does not have diabetes or hypertension. The pain she has gets worse when she takes a deep b reath or sits up straight or in any way, stretches or mediastinal structures apparently. Since she h as been in the hospital, EKGs and enzymes are negative for chest pain. She also had nausea and short ness of breath yesterday. Physical Examination: Measurements: She is 5 feet 5 inches, 163 pounds. General: Alert, oriented, pleasant, not in distress. Lungs: Clear. Cardiac: Normal. Abdomen: Soft. Extremities: Normal. There is no pericardial friction rub. No pleural friction rub. Imaging: A CT of the chest does not reveal pulmonary emboli or any acute process in the chest, altho ugh small bilateral pleural effusions with moderate pericardial effusion were both seen. The patient has metallic device subdiaphragmatic that is visible on the CAT scan. It looks like a perfect ring. I have no way of assessing that with my present knowledge and whether that is effective or not. Impression: The patient is having pleuritic chest pain. There may be pericarditis or other nonspeci fic postpericardiotomy syndrome. I would recommend we try and treat her with colchicine. I do not think she needs an extensive cardiac workup at this point. CORINNA/LORRIE Voice ID: [id number] Report ID: [id number]
[2019-02-21 13:30] LABS: Urine Appearance CLEAR; Urine Bilirubin NEGATIVE (NEG); Urine Blood 1+ (NEG); Urine Color DK YELLOW; Urine Glucose NEGATIVE (NEG); Urine Protein TRACE (NEG); Urine Specific Gravity >=1.030 (1.005-1.030); Urine Urobilinogen 0.2 mg/dL (0.2-1.0)
[2019-02-21 14:08] LABS: Urine Bacteria 20-50 /HPF (<20); Urine Culture Reflex Order REFLEXED; Urine Mucus SLIGHT /HPF (NONE SEEN)
[2019-02-21] MEDS ORDERED: METOPROLOL TAR 25 MG TAB PO SCH (21:00)
[2019-02-22 04:37] VITALS: O2SAT 93
[2019-02-22] MEDS: PANTOPRAZOLE 40MG TABLET PO SCH (05:22)
[2019-02-22 06:05] LABS: Absolute Lymphocytes (CBC) 0.8 K/uL (0.7-4.9); Basophils % 0.2 % (0-1.3); Hematocrit 34.9 % (36.0-45.0); Lymphocytes % 7.2 % (15.3-44.8); RBC Red Blood Cell Count 4.13 M/uL (3.86-4.86)
[2019-02-22 06:13] LABS: BUN Blood Urea Nitrogen 9 mg/dL (7-18); Bicarbonate 29 mmol/L (21-32); Glucose Level 89 mg/dL (74-106); Magnesium 2.5 mg/dL (1.8-2.4); Potassium 4.2 mmol/L (3.5-5.1); Sodium Level 137 mmol/L (136-145)
[2019-02-22] MEDS ORDERED: CEFTRIAXONE 1 GM/NS 50 ML 1 GM/50 ML BAG IV SCH (09:00)
[2019-02-22] MEDS: ENOXAPARIN 40 MG/0.4 ML SQ SCH (09:09)
[2019-02-22] MEDS: predniSONE 10 MG TAB PO SCH (09:09)
[2019-02-22] MEDS: ASPIRIN EC 81 MG TAB PO SCH (09:09)
[2019-02-22] MEDS: COLCHICINE 0.6 MG TAB PO SCH (09:09)
--- NOTE | 2019-02-22 12:01 | P.DS ---
Admission Date: 02/21/19 Discharge Date: 02/22/19 Primary Care Provider: Dr. Kelly; Cardiology-Dr. Sterling([facility]); GI-Dr. Wolf Disposition: ROUTINE DISCHARGE Discharge Condition: GOOD Reason for Admission: Chest pain rule out acute coronary syndro Consultations: Cardiology-Dr. Lindsay Procedures: CT Chest: COMPARISON: Chest Angio dated 01/06/2019 TECHNIQUE: CT angiogram of the pulmonary arteries was performed with MIP. All CT scans are performed using dose optimization technique as appropriate and may include automated exposure control or mA/KV adjustment according to patient size. FINDINGS: No evidence of pulmonary thromboembolism. No acute aortic finding demonstrated. Moderate subsegmental atelectasis is present in both lung bases. Small bilateral pleural effusions, slightly greater on the right. Moderate pericardial effusion. No concerning bony finding. IMPRESSION: No evidence of pulmonary thromboembolism. Mild subsegmental atelectasis in both lung bases. Small bilateral pleural effusions with moderate pericardial effusion. Follow up CXR: COMPARISON: Chest Single View dated 02/20/2019; Chest Pa And Lat (2 Views) dated 01/07/2019; Chest Single View dated 01/06/2019 FINDINGS: Small bilateral pleural effusions are noted appearing slightly increased in size since the comparative study. Mild subsegmental atelectasis is present in both lung bases. The heart is moderately enlarged in size. No displaced fractures. Medical Problem List: Chest pain secondary to pericarditis with noted pericardial effusion and small bilateral pleural effusions with atelectasis complicated with prior history of large diaphragmatic hernia repair with linx device placed GERD with history of esophageal spasms Brief History of Present Illness: 63-year-old female presented to emergency room with chest pain. Patient has history of surgery to repair a large diaphragmatic hernia. She has been having pain to this area since her surgery. Surgery was performed in December. Patient also has had a Linx device placed. She had been given nitroglycerin, hyoscyamine, and Norvasc for the pain without relief. Prior to her surgery she had an extensive cardiac workup. Workup was unremarkable. Due to the increasing pain she came to the ER for further evaluation. Patient found to have pericardial effusion, pleural effusion. Patient admitted for further evaluation and treatment. Hospital Course: Patient presented with chest pain. Patient with history of surgery to repair a large diaphragmatic hernia hernia. She had a linx device placed. This occurred in December. She had an extensive cardiac workup done by Cardiology. Her workup was unremarkable. Since that time. Chest pain has been persistent. She has been given medication-nitroglycerin, hyoscyamine and Norvasc without relief. Patient came to the ER for further evaluation. In the ER she was found to have pericardial effusion, pleural effusion and atelectasis. Patient was admitted for further evaluation and treatment. Patient seen and evaluated by Cardiology. Cardiology suspects pericarditis. Patient was started on low- dose oral prednisone and colchicine. Patient has improved. At discharge patient will continue with prednisone 10 mg daily for 3 more days. Patient will also continue with colchicine 0.6 mg 1 pill twice daily for 6 weeks. Recommend patient to follow up with cardiology in 1-2 weeks to follow up this hospitalization. Recommend recheck chest x-ray in 2-4 weeks to monitor resolution. Patient will also likely require repeat echocardiogram for further resolution. Patient with history of GERD and esophageal spasm. Will recommend to continue with Protonix 40 mg daily. Patient may follow up with her GI specialist. Vital Signs/Physical Exam: Temp Pulse Resp BP Pulse Ox 98 F 68 18 130/66 93 02/22/19 08:00 02/22/19 08:00 02/22/19 08:00 02/22/19 08:00 02/22/19 08:00 General: Alert, In no apparent distress, Oriented x3, Cooperative HEENT: Atraumatic Neck: Supple Respiratory: Clear to auscultation bilaterally, Normal air movement Cardiovascular: Normal pulses, Regular rate/rhythm Gastrointestinal: Normal bowel sounds, Soft and benign, Non-distended, No tenderness, No masses, No rebound, No guarding Neurological: Normal speech, Normal strength at 5/5 x4 extr, Normal tone, Normal affect Laboratory Data at Discharge: WBC 11.4 K/uL (4.3-10.9) H D 02/22/19 05:44 Hgb 11.8 g/dL (12.0-15.0) L 02/22/19 05:44 Hct 34.9 % (36.0-45.0) L D 02/22/19 05:44 Plt Count 196 K/uL (152-406) D 02/22/19 05:44 PT 14.4 SECONDS (9.5-12.5) H 02/20/19 17:20 INR 1.23 02/20/19 17:20 Sodium 137 mmol/L (136-145) 02/22/19 05:44 Potassium 4.2 mmol/L (3.5-5.1) 02/22/19 05:44 BUN 9 mg/dL (7-18) 02/22/19 05:44 Creatinine 0.44 mg/dL (0.55-1.3) L 02/22/19 05:44 Glucose 89 mg/dL (74-106) 02/22/19 05:44 Magnesium 2.5 mg/dL (1.8-2.4) H 02/22/19 05:44 Total Bilirubin 0.8 mg/dL (0.2-1.0) 02/20/19 17:20 AST 8 U/L (15-37) L 02/20/19 17:20 ALT 17 U/L (12-78) 02/20/19 17:20 Alkaline Phosphatase 107 U/L (45-117) 02/20/19 17:20 Troponin I < 0.02 ng/mL (0.0-0.045) 02/21/19 05:04 Triglycerides Cancelled 02/21/19 06:00 Cholesterol Cancelled 02/21/19 06:00 HDL Cholesterol Cancelled 02/21/19 06:00 Cholesterol/HDL Ratio Cancelled 02/21/19 06:00 Home Medications: Colchicine [Colcrys *] 0.6 mg PO BID #60 tab 02/22/19 Pantoprazole [Protonix Tab*] 40 mg PO DAILYAC #30 tab 02/22/19 predniSONE [Deltasone*] 10 mg PO DAILY #3 tab 02/22/19 New Medications: Colchicine [Colcrys *] 0.6 mg PO BID #60 tab Pantoprazole [Protonix Tab*] 40 mg PO DAILYAC #30 tab predniSONE [Deltasone*] 10 mg PO DAILY #3 tab Patient Discharge Instructions: 1. Recommend follow up with her PCP in 1 week to follow up hospitalization. 2. Patient presented with chest pain. Patient with history of surgery to repair a large diaphragmatic hernia hernia. She had a linx device placed. This occurred in December. She had an extensive cardiac workup done by Cardiology. Her workup was unremarkable. Since that time. Chest pain has been persistent. She has been given medication-nitroglycerin, hyoscyamine and Norvasc without relief. Patient came to the ER for further evaluation. In the ER she was found to have pericardial effusion, pleural effusion and atelectasis. Patient was admitted for further evaluation and treatment. Patient seen and evaluated by Cardiology. Cardiology suspects pericarditis. Patient was started on low-dose oral prednisone and colchicine. Patient has improved. At discharge patient will continue with prednisone 10 mg daily for 3 more days. Patient will also continue with colchicine 0.6 mg 1 pill twice daily for 6 weeks. Recommend patient to follow up with cardiology in 1-2 weeks to follow up this hospitalization. Recommend recheck chest x-ray in 2-4 weeks to monitor resolution. Patient will also likely require repeat echocardiogram for further resolution. 3. Patient with history of GERD and esophageal spasm. Will recommend to continue with Protonix 40 mg daily. Patient may follow up with her GI specialist. Diet: AHA Activity: Ad bárbara Time spent managing pt's care (in minutes): 55
[2019-02-22 12:40] LABS: Anisocytosis 1+; Blood Morphology Comment NOTED (NOT SEEN); Platelet Estimate ADEQ; Urine White Blood Cell Casts OK
[2019-02-22 14:14] VITALS: BP 121/59; TEMP 97.2
--- NOTE | 2019-02-22 20:43 | PN ---
Date of Progress Note: 02/22/2019 History: Ms. 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 She was placed on colchicine 0.6 mg p.o . b.i.d. and some steroid yesterday. Overnight, she appears better, her chest pain is better. She d oes not have any telemetry led changes. Denied any fever or chills. We will continue her present re gimen with colchicine for probably about 4-6 weeks, may be steroid for 2-3 days. The case was discus sed with Dr. Patel. She can go home today. She can follow up with us in the near future. BHAVANI/LORRIE Voice ID: [id number] Report ID: [id number]
== END 2019-02-22 13:08 | disposition home or self-care (01) | DRG 315 ==
LOC: ER 15:40 → ERHOLD 19:49 → 2ND 22:18 → OBSVTOIN 02-21 16:16
PROVIDERS: ADMIT Hospitalist; ATTEND Family Medicine
DX: I30.9 Acute pericarditis, unspecified (principal); J90 Pleural effusion, not elsewhere classified; J98.11 Atelectasis; K21.9 Gastro-esophageal reflux disease without esophagitis; Z98.890 Other specified postprocedural states
CPT/HCPCS: 36415; 71045; 71046; 71275; 80048; 80053; 80061; 81001; 83735; 83880; 84145; 84484; 85025; 85379; 85610; 85652; 86038; 86140; 87086; 87088; 87804; 93005; 96374; 96375; 99285; G0378; J1200; J1650; J2405; J2765; J7030; J7512; Q9967

== ENCOUNTER 2021-08-14 14:04 | Emergency (ER) | payer OTHER ==
[2021-08-14 14:58] LABS: Absolute Lymphocytes (CBC) 1.1 K/uL (0.7-4.9); Hematocrit 44.6 % (36.0-45.0); Lymphocytes % 9.6 % (15.3-44.8); MCV 86.5 fL (80-100); MPV 7.8 fL (7.6-11.3); RBC Red Blood Cell Count 5.16 M/uL (3.86-4.86)
[2021-08-14 15:15] LABS: ALT/SGPT 18 U/L (12-78); AST/SGOT 8 U/L (15-37); Albumin 3.5 g/dL (3.4-5.0); Alkaline Phosphatase 110 U/L (45-117); BUN Blood Urea Nitrogen 15 mg/dL (7-18); Bicarbonate 23 mmol/L (21-32); Bilirubin Total 0.3 mg/dL (0.2-1.0); Glomerular Filtration Rate 74 ml/min (=/>90); Glucose Level 123 mg/dL (74-106); Magnesium 2.3 mg/dL (1.8-2.4); NT PRO-BNP 282 pg/mL (<125); Potassium 3.5 mmol/L (3.5-5.1); Protein, Total 7.3 g/dL (6.4-8.2); Sodium Level 138 mmol/L (136-145); Troponin High Sensitivity 3.2 pg/mL (<58.9)
--- NOTE | 2021-08-14 15:22 | RAD REPORT ---
EXAM DESCRIPTION: [place] Single View08/14/2021 3:08 pm CLINICAL HISTORY: Chest pain COMPARISON: 2019 FINDINGS: The lungs appear clear of acute infiltrate. The heart is mildly to moderately enlarged IMPRESSION: No acute abnormalities displayed
[2021-08-14 15:26] LABS: Bilirubin Direct < 0.1 mg/dL (0-0.2)
[2021-08-14] MEDS ORDERED: MAGNES/ALUMIN/SIMET 30ML UCUP ONE (15:58)
[2021-08-14] MEDS ORDERED: LIDOCAINE VISCOUS 2% SOLN 15 ML UDC ONE (15:58)
--- NOTE | 2021-08-14 16:40 | ER ---
Nurse's Notes [facility] Name: Jessi Silva Age: 65 yrs Sex: Female : 1955 Arrival Date: 08/14/2021 Time: 14:06 Bed 6 Private MD: Joan Hickman Diagnosis: Chest pain, unspecified Presentation: 08/14 14:15 Chief complaint: Patient states: Midsternal CP and SOB x 2-3 days, "It's not constant. jl7 It's just when I try to take a deep breath, if I sneeze or lay down." Hx of diaphragmatic hernia, repair 12/2018. Coronavirus screen: At this time, the client does not indicate any symptoms associated with coronavirus-19. Ebola Screen: No symptoms or risks identified at this time. Initial Sepsis Screen: Does the patient meet any 2 criteria? No. Patient's initial sepsis screen is negative. Does the patient have a suspected source of infection? No. Patient's initial sepsis screen is negative. Risk Assessment: Do you want to hurt yourself or someone else? Patient reports no desire to harm self or others. Onset of symptoms was August 11, 2021. 14:15 Method Of Arrival: Ambulatory [facility] 14:15 Acuity: EROS 3 jl7 Triage Assessment: 14:28 General: Appears in no apparent distress. uncomfortable, Behavior is calm, cooperative, jl7 appropriate for age. Pain: Complains of pain in mid-sternal area Pain does not radiate. Pain currently is 8 out of 10 on a pain scale. Cardiovascular: Patient's skin is warm and dry. Historical: - Allergies: 14:28 No Known Allergies; jl7 - Home Meds: 14:28 None [Active]; jl7 - PMHx: 14:28 diaphragmatic hernia; jl7 - PSHx: 14:28 None; jl7 - Immunization history:: Client reports having NOT received the Covid vaccine. - Social history:: Smoking status: Patient denies any tobacco usage or history of. Screenin:46 Abuse screen: Denies threats or abuse. Nutritional screening: No deficits noted. aa5 Tuberculosis screening: No symptoms or risk factors identified. Fall Risk None identified. Assessment: 14:40 General: Appears comfortable, Behavior is calm, cooperative, Denies feeling ill. Pain: aa5 Complains of pain in mid-sternal area Pain does not radiate. Pain currently is 8 out of 10 on a pain scale. Quality of pain is described as sharp, Pain began 2-3 days ago. Is episodic, Aggravated by movement and deep breaths. Neuro: Level of Consciousness is awake, alert, obeys commands, Oriented to person, place, time, situation. Cardiovascular: Heart tones S1 S2 present Rhythm is sinus tachycardia. Respiratory: Reports shortness of breath Airway is patent Respiratory effort is even, unlabored, Respiratory pattern is regular, symmetrical, Breath sounds are clear bilaterally. Denies cough. GI: Abdomen is round non-distended, Bowel sounds present X 4 quads. Abd is soft and non tender X 4 quads. Patient currently denies nausea, vomiting. : No signs and/or symptoms were reported regarding the genitourinary system. EENT: No signs and/or symptoms were reported regarding the EENT system. Derm: Skin is pink, warm \\T\\ dry. Musculoskeletal: Range of motion: intact in all extremities. 15:16 Reassessment: Patient is alert, oriented x 3, equal unlabored respirations, skin aa5 warm/dry/pink. Pt sitting up in bed. . 16:15 Reassessment: Patient is alert, oriented x 3, equal unlabored respirations, skin aa5 warm/dry/pink. 17:20 Reassessment: Patient is alert, oriented x 3, equal unlabored respirations, skin aa5 warm/dry/pink. Vital Signs: 14:15 BP 185 / 101; Pulse 108; Resp 20; Temp 97.5; Pulse Ox 97% ; Weight 86.18 kg; Height 5 jl7 ft. 5 in. (165.10 cm); Pain 8/10; 15:15 BP 152 / 87; Pulse 97; Resp 16 S; Pulse Ox 96% on R/A; aa5 16:15 BP 160 / 91; Pulse 94; Resp 16 S; Pulse Ox 96% on R/A; aa5 14:15 Body Mass Index 31.62 (86.18 kg, 165.10 cm) jl7 ED Course: 14:06 Patient arrived in ED. as 14:06 Cydney Kelly MD is Private Physician. as 14:07 Joan Hickman MD is Private Physician. as 14:07 Keith Arthur NP is PHCP. pm1 14:07 Davonte Gutierrez DO is Attending Physician. pm1 14:26 Triage completed. jl7 14:28 Arm band placed on right wrist. jl7 14:29 Soumya Moura, RN is Primary Nurse. aa5 14:40 Patient has correct armband on for positive identification. Placed in gown. Bed in low aa5 position. Call light in reach. Side rails up X2. Client placed on continuous cardiac and pulse oximetry monitoring. NIBP monitoring applied. 14:46 EKG done, by ED staff, reviewed by Davonte Gutierrez DO. aa5 14:48 Inserted saline lock: 20 gauge in left forearm, using aseptic technique. Blood mb7 collected. 15:10 XRAY Chest (1 view) In Process Unspecified. EDMS 15:10 No provider procedures requiring assistance completed. Patient maintains SpO2 aa5 saturation greater than 95% on room air. 17:20 IV discontinued, intact, bleeding controlled, No redness/swelling at site. Pressure aa5 dressing applied. Administered Medications: 15:50 Drug: GI Cocktail without - (Maalox Suspension 30 ml, Lidocaine Liquid 2 % 15 aa5 ml) Route: PO; 17:20 Follow up: Response: No adverse reaction aa5 Medication: 17:20 VIS not applicable for this client. aa5 Outcome: 16:40 Discharge ordered by MD. pm1 17:20 Discharged to home ambulatory. aa5 17:20 Condition: stable 17:20 Discharge instructions given to patient, Instructed on discharge instructions, follow up and referral plans. medication usage, Demonstrated understanding of instructions, follow-up care, medications, Prescriptions given X 1. 17:29 Patient left the ED. aa5 Signatures: Dispatcher [employer] EDMS Janet Hayden Audri, RN RN aa5 Keith Arthur NP FACEPIECE LINE SUPERVISOR pm1 Gabriel Rodgers RN RN jl7 Rosetta Guerrero mb7
--- NOTE | 2021-08-14 16:40 | EDPHYS ---
Physician Documentation [facility] Name: Jessi Silva Age: 65 yrs Sex: Female : 1955 Arrival Date: 08/14/2021 Time: 14:06 Bed 6 Private MD: Joan Hickman ED Physician Davonte Gutierrez HPI: 08/14 14:29 This 65 yrs old Female presents to ER via Ambulatory with complaints of Chest Pain, pm1 Headache. 14:29 The patient or guardian reports chest pain that is located primarily in the right pm1 breast and left breast. Onset: 3 day(s) ago. The pain does not radiate. Associated signs and symptoms: Pertinent positives: headache, Pertinent negatives: abdominal pain, nausea, shortness of breath, vomiting. The chest pain is described as sharp. Modifying factors: the symptoms are aggravated by Hiccups, leaning forward, sneezing, and deep breathing. Severity of pain: in the emergency department the pain is unchanged. The patient has not recently seen a physician. Historical: - Allergies: 14:28 No Known Allergies; jl7 - Home Meds: 14:28 None [Active]; jl7 - PMHx: 14:28 diaphragmatic hernia; jl7 - PSHx: 14:28 None; jl7 - Immunization history:: Client reports having NOT received the Covid vaccine. - Social history:: Smoking status: Patient denies any tobacco usage or history of. ROS: 14:29 Constitutional: Negative for fever, chills, and weight loss, Respiratory: Negative for pm1 shortness of breath, cough, wheezing, and pleuritic chest pain. 14:29 Abdomen/GI: Negative for abdominal pain, nausea, vomiting, diarrhea, and constipation, Back: Negative for injury and pain, MS/Extremity: Negative for injury and deformity, Skin: Negative for injury, rash, and discoloration. 14:29 Cardiovascular: Positive for chest pain, of the mid-sternal area, right breast and left breast, Negative for edema, palpitations. 14:29 Neuro: Positive for headache, Negative for numbness, tingling, weakness. 14:29 All other systems are negative. Exam: 14:29 Constitutional: This is a well developed, well nourished patient who is awake, alert, pm1 and in no acute distress. Head/Face: Normocephalic, atraumatic. 14:29 Eyes: Exam is negative for acute changes, Periorbital structures: no acute changes, Pupils: no acute changes, Conjunctiva: no acute changes, no injection. 14:29 ENT: Exam is negative for acute changes, Mouth: no acute changes, Lips: normal, moist, Oral mucosa: normal, pink and intact, moist. 14:29 Back: No spinal tenderness. No costovertebral tenderness. Full range of motion. pm1 Skin: Warm, dry with normal turgor. Normal color with no rashes, no lesions, and no evidence of cellulitis. MS/ Extremity: Pulses equal, no cyanosis. Neurovascular intact. Full, normal range of motion. 14:29 Cardiovascular: Exam negative for acute changes, Rate: normal, Rhythm: regular, Pulses: no pulse deficits are appreciated, Heart sounds: normal, normal S1and S2, Edema: is not appreciated. 14:29 Respiratory: Exam negative for acute changes, respiratory distress, shortness of breath, Breath sounds: are clear throughout. 14:29 Abdomen/GI: Exam negative for acute changes, Inspection: abdomen appears normal, Palpation: abdomen is soft and non-tender, in all quadrants. 14:29 Neuro: Exam negative for acute changes, Orientation: is normal, Mentation: is normal, Motor: is normal, moves all fours. Vital Signs: 14:15 BP 185 / 101; Pulse 108; Resp 20; Temp 97.5; Pulse Ox 97% ; Weight 86.18 kg; Height 5 jl7 ft. 5 in. (165.10 cm); Pain 8/10; 15:15 BP 152 / 87; Pulse 97; Resp 16 S; Pulse Ox 96% on R/A; aa5 16:15 BP 160 / 91; Pulse 94; Resp 16 S; Pulse Ox 96% on R/A; aa5 14:15 Body Mass Index 31.62 (86.18 kg, 165.10 cm) jl7 MDM: 14:29 Patient medically screened. pm1 16:22 Data reviewed: vital signs. Data interpreted: Pulse oximetry: on room air is 96 %. pm1 Interpretation: normal. Counseling: I had a detailed discussion with the patient and/or guardian regarding: the historical points, exam findings, and any diagnostic results supporting the discharge/admit diagnosis, lab results, radiology results, the need for outpatient follow up, PCP, GI, cardiology. Improvement in management of her BP to prevent further risk for CHF. 08/14 14:29 Order name: Basic Metabolic Panel; Complete Time: 15:27 pm1 08/14 14:29 Order name: CBC with Diff; Complete Time: 15:13 pm1 08/14 14:29 Order name: LFT's; Complete Time: 15:27 pm1 08/14 14:29 Order name: Magnesium; Complete Time: 15:27 pm1 08/14 14:29 Order name: NT PRO-BNP; Complete Time: 15:27 pm1 08/14 14:29 Order name: PT-INR; Complete Time: 15:13 pm1 08/14 14:29 Order name: Troponin HS; Complete Time: 15:27 pm1 08/14 14:29 Order name: XRAY Chest (1 view); Complete Time: 15:25 pm1 08/14 14:29 Order name: EKG; Complete Time: 14:30 pm1 08/14 14:29 Order name: Cardiac monitoring; Complete Time: 14:46 pm08/14 14:29 Order name: EKG - Nurse/Tech; Complete Time: 14:46 pm1 08/14 14:29 Order name: IV Saline Lock; Complete Time: 14:49 pm08/14 14:29 Order name: Labs collected and sent; Complete Time: 14:49 pm08/14 14:29 Order name: O2 Per Protocol; Complete Time: 14:46 pm1 08/14 14:29 Order name: O2 Sat Monitoring; Complete Time: 14:46 pm1 Administered Medications: 15:50 Drug: GI Cocktail without - (Maalox Suspension 30 ml, Lidocaine Liquid 2 % 15 aa5 ml) Route: PO; 17:20 Follow up: Response: No adverse reaction aa5 Disposition: 18:56 Co-signature as Attending Physician, Davonte ABDUL was immediately available on-site ms3 in the Emergency Department for consultation in the care of the patient.. Disposition Summary: 08/14/21 16:40 Discharge Ordered Location: Home pm1 Problem: new pm1 Symptoms: have improved pm1 Condition: Stable pm1 Diagnosis - Chest pain, unspecified pm1 Followup: pm1 - With: Emergency Department - When: As needed - Reason: Worsening of condition Followup: pm1 - With: Private Physician - When: 2 - 3 days - Reason: Recheck today's complaints, Continuance of care, Re-evaluation by your physician Discharge Instructions: - Discharge Summary Sheet pm1 - Nonspecific Chest Pain, Adult pm1 Forms: - Medication Reconciliation Form pm1 - Thank You Letter pm1 - Antibiotic Education pm1 - Prescription Opioid Use pm1 Prescriptions: - Pepcid 20 mg Oral Tablet - take 1 tablet by ORAL route every 12 hours for 10 days; 20 tablet; Refills: 0, pm1 Product Selection Permitted Signatures: Dispatcher [employer] EDMS Soumya Moura RN RN aa5 Keith Arthur NP RANGE ECOLOGIST pm1 Gabriel Rodgers RN RN jl7 Davonte Gutierrez DO DO ms3 Corrections: (The following items were deleted from the chart) 17:25 14:29 Cardiovascular: Positive for chest pain, Negative for edema, palpitations, pm1 pm1 19:24 14:29 Modifying factors: the symptoms are aggravated by Hiccups, leaning forward, deep pm1 breathing. pm1
[2021-08-14 17:39] VITALS: TEMP 97.5
[2021-08-14 17:41] VITALS: BP 152/87; O2SAT 96
--- NOTE | 2021-08-17 13:55 | EKG ---
Test Date: 2021-08-14 Test Time: 14:36:59 Automatic Thread Winder: ELIAN MEASUREMENT RESULTS: Intervals: Rate: 102 NV: 138 QRSD: 78 QT: 334 QTc: 435 [place]: P: 55 NV: 138 QRS: 15 T: 46 INTERPRETIVE STATEMENTS: Sinus tachycardia Otherwise normal ECG Compared to ECG 02/21/2019 08:11:01 Sinus rhythm no longer present Electronically Signed On 08-17-21 13:49:21 CDT by Molina Costa
== END 2021-08-14 17:29 | disposition home or self-care (01) ==
LOC: ER 14:04
DX: R07.9 Chest pain, unspecified (principal); R51.9 Headache, unspecified
CPT/HCPCS: 36415; 71045; 80048; 80076; 83735; 83880; 84484; 85025; 85610; 93005

== ENCOUNTER 2023-10-26 07:25 | Day surgery (SDC) | payer OTHER ==
[2023-10-25 14:42] LABS: Absolute Lymphocytes (CBC) 1.1 K/uL (0.7-4.9); Absolute Monocytes 0.5 K/uL (0.1-1.3); Absolute Neutrophil 6.2 K/uL (1.8-8.0); Basophils % 0.4 % (0-1.3); Eosinophils % 0.5 % (0-4.4); Hematocrit 45.7 % (36.0-45.0); Hemoglobin 14.8 g/dL (12.0-15.0); Lymphocytes % 14.3 % (15.3-44.8); MCHC 32.3 g/dL (32.0-36.0); MCV 89.7 fL (80-100); MPV 8.5 fL (7.6-11.3); Monocytes % 6.1 % (3.3-12.3); Neutrophils % 78.7 % (41.7-73.7); Platelets 173 thou/uL (152-406)
[2023-10-25 14:52] LABS: Anion Gap 7.4 mEq/L (5.0-15.0); Potassium 4.4 mEq/L (3.5-5.1)
--- NOTE | 2023-10-25 19:25 | RAD REPORT ---
EXAMINATION: TWO VIEW CHEST XR CLINICAL INDICATION: Female, 67 years old. [facility] pre op pending hernia repair TECHNIQUE: 2 view radiographs of the chest were performed. COMPARISON: 08/14/2021 FINDINGS: The lungs are well inflated and clear. No pneumothorax or sizable effusion. The heart is normal in si ze. Mediastinal contours are unremarkable. IMPRESSION: No acute or significant abnormalities.
[2023-10-26] MEDS ORDERED: Ringers Lactate 1,000 ML IV ONE (07:43)
[2023-10-26] MEDS ORDERED: CEFAZOLIN SODIUM 1 GM/VIAL ONE (08:01)
[2023-10-26] MEDS ORDERED: KETOROLAC 30 MG/ML INJ ONE (08:36)
[2023-10-26] MEDS ORDERED: ONDANSETRON 4 MG/2 ML VIAL ONE (08:36)
[2023-10-26] MEDS ORDERED: MIDAZOLAM HCL 2 MG/2 ML INJ ONE (08:36)
[2023-10-26] MEDS ORDERED: FENTANYL CITR 100 MCG/2 ML ONE (08:36)
[2023-10-26] MEDS ORDERED: propofoL 200 MG/20 ML VIAL IV ONE (08:36)
[2023-10-26] MEDS ORDERED: LIDOCAINE 1% MPF 5 ML VIAL ONE (08:36)
[2023-10-26] MEDS ORDERED: ROCURONIUM 50 MG/5 ML VIAL IV ONE (08:37)
[2023-10-26] MEDS ORDERED: GLYCOPYRROLATE 0.2 MG/ML SYR ONE (08:37)
--- NOTE | 2023-10-26 10:07 | P.BOP ---
Preoperative diagnosis: tender umbilical hernia 3 cm, hx of diaphragmatic hernia repair, Postoperative diagnosis: same plus intrabdominal adhesions Primary procedure: 1. Laparoscopic repair of tender umbilical hernia with mesh Secondary procedure: 2. Laparoscopic lysis of adhesions Estimated blood loss: <10cc Specimen: sac Findings: Multiple small bowel loops attached to anterior abd wall with adhesions Anesthesia: General Complications: None Transferred to: Recovery Room Condition: Good
[2023-10-26 10:51] VITALS: O2SAT 99
[2023-10-26 11:50] VITALS: BP 136/78; TEMP 97.8
--- NOTE | 2023-10-27 12:26 | EKG ---
Test Date: 2023-10-25 Test Time: 13:52:36 Hand Engraver: SHAY MEASUREMENT RESULTS: Intervals: Rate: 75 CT: 142 QRSD: 80 QT: 398 QTc: 444 [place]: P: 60 CT: 142 QRS: -28 T: 49 INTERPRETIVE STATEMENTS: Normal sinus rhythm Possible Left atrial enlargement Borderline ECG Compared to ECG 08/14/2021 14:36:59 Sinus tachycardia no longer present Electronically Signed On 10-27-23 12:19:14 CDT by Gurpreet Oswald
== END 2023-10-26 11:40 | disposition home or self-care (01) ==
LOC: OR 07:25
PROVIDERS: ATTEND Surgery
PROC: 0DNW4ZZ Release Peritoneum, Percutaneous Endoscopic Approach (ICD-10-PCS; 2023-10-26)
PROC: 0WUF4JZ Supplement Abdominal Wall with Synthetic Substitute, Percutaneous Endoscopic Approach (ICD-10-PCS; principal; 2023-10-26 08:55)
DX: K42.9 Umbilical hernia without obstruction or gangrene (principal); K66.0 Peritoneal adhesions (postprocedural) (postinfection)
CPT/HCPCS: 49593; 93005; 85025; 80048; 36415; 88302; 71046; 49329; J2704; J2001; J2250; J3010; J2405; J7120; J0690

== ENCOUNTER 2024-05-01 14:42 | Emergency (ER) | payer OTHER ==
[2024-05-01 17:06] LABS: Urine Bacteria <20 /HPF (<20); Urine Bilirubin 1+ (Negative); Urine Blood Negative (Negative); Urine Clarity Extremely Turbid (Clear); Urine Color Yellow (Yellow); Urine Crystals Unidentified Few /HPF (None Seen); Urine Culture Reflex Order NOT NEEDED; Urine Glucose NEGATIVE (Negative); Urine Ketones 2+ (Negative); Urine Microscopic Reflex YN ORDER UMIC; Urine Mucus 4+ /HPF (None Seen); Urine Nitrite NEGATIVE (Negative); Urine Protein 1+ (Negative); Urine Urobilinogen 1+ (Normal); Urine WBC <5 /HPF (<5); Urine WBC Clump Rare /HPF (None Seen); Urine Yeast (Budding) Trace /HPF (None Seen); Urine pH 6.5 (5.0-7.0)
[2024-05-01 17:16] LABS: Hemoglobin 17.1 g/dL (12.0-15.0)
[2024-05-01 17:18] LABS: Absolute Basophils 0.1 K/uL (0-0.5)
[2024-05-01 17:22] LABS: Albumin 4.1 g/dL (3.4-5.0); Albumin/Globulin Ratio 1.1 (1.1-1.8); Anion Gap 10.6 mEq/L (5.0-15.0); Bilirubin Total 0.6 mg/dL (0.2-1.0); Globulin 3.9 g/dL (2.3-3.5); Potassium 3.6 mEq/L (3.5-5.1)
--- NOTE | 2024-05-01 17:22 | RAD REPORT ---
EXAMINATION: CT Stone Protocol CLINICAL INDICATION: Female, 68 years old. FLANK PAIN TECHNIQUE: CT abdomen and pelvis was performed, without IV contrast, as per department protocol. Axia l, sagittal and coronal reconstructions were obtained. One or more of the following dose reduction techniques were used: Automated exposure control, adjustment of the mA and kV according to the patien t size, and iterative reconstruction. Unless otherwise specified, incidental findings do not require dedicated imaging follow-up. COMPARISON: No prior exam. FINDINGS: The lack of intravenous contrast limits the sensitivity of this exam for evaluation of solid visceral organs, vascular structures, and retroperitoneum. LOWER CHEST: The visualized lung bases are clear. Findings abdomen right lower lobe calcified granulo ma. LIVER: Normal in size and contour. No focal lesion. BILIARY SYSTEM: Mild layering hyperdense sludge. No suspicious abnormalities. SPLEEN: Normal size. No focal lesion. PANCREAS: No mass, ductal dilation, or curtis-pancreatic fluid. ADRENALS: Normal; no mass. KIDNEYS AND URETERS: Normal size and contour. No hydronephrosis. URINARY BLADDER: Suboptimal distention limiting evaluation. GASTROINTESTINAL TRACT: No evidence of bowel obstruction, significant free fluid, free air or abscess . APPENDIX: Appendix not visualized, but no inflammatory changes in region of appendix. LYMPH NODES: No lymphadenopathy. MUSCULOSKELETAL: No acute or suspicious osseous abnormality. ADDITIONAL FINDINGS: Small right spigelian hernia containing fat. IMPRESSION: No acute or concerning abnormalities in the abdomen or pelvis, with evaluation limited by lack of IV contrast. Incidental findings as above.
[2024-05-01 17:53] LABS: Absolute Lymphocytes (CBC) 1.8 K/uL (0.7-4.9); Absolute Monocytes 0.7 K/uL (0.1-1.3); Absolute Neutrophil 10.4 K/uL (1.8-8.0); Basophils % 0.9 % (0-1.3); Eosinophils % 0.4 % (0-4.4); Hematocrit 52.4 % (36.0-45.0); MCH 28.8 pg (27.0-35.0); MCHC 32.6 g/dL (32.0-36.0); MCV 88.4 fL (80-100); MPV 9.5 fL (7.6-11.3); Monocytes % 5.4 % (3.3-12.3); Neutrophils % 79.3 % (41.7-73.7); Nucleated Red Blood Cells % 0.2 % (0-0); Platelets 181 thou/uL (152-406); RBC Red Blood Cell Count 5.93 M/uL (3.86-4.86); Red Cell Distribution Width 14.7 % (12.1-15.2)
--- NOTE | 2024-05-01 18:18 | ER ---
Nurse's Notes [facility] Name: Jessi Silva Age: 68 yrs Sex: Female : 1955 Arrival Date: 05/01/2024 Time: 14:42 Bed 12 Private MD: Diagnosis: Low back pain Presentation: 05/01 15:12 Chief complaint: Patient states: c/o left lower back pain since Tuesday morning, does me1 not radiate, Pain 11/16. . Reports vomiting once a day since Tuesday. Denies urinary symptoms. Coronavirus screen: Vaccine status: Patient reports being unvaccinated. Ebola Screen: No symptoms or risks identified at this time. Initial Sepsis Screen: Does the patient meet any 2 criteria? No. Patient's initial sepsis screen is negative. Does the patient have a suspected source of infection? No. Patient's initial sepsis screen is negative. Risk Assessment: Do you want to hurt yourself or someone else? Patient reports no desire to harm self or others. Onset of symptoms was April 28, 2024. 15:12 Method Of Arrival: [facility] 15:12 Acuity: EROS 3 ne1 Triage Assessment: 16:40 General: Appears in no apparent distress. uncomfortable, Behavior is calm, cooperative, bp appropriate for age. Pain: Complains of pain in left low back. EENT: No deficits noted. Neuro: No deficits noted. Cardiovascular: No deficits noted. Respiratory: No deficits noted. GI: No signs and/or symptoms were reported involving the gastrointestinal system. : Reports pain in left in lower back. Derm: No deficits noted. Musculoskeletal: No deficits noted. Historical: - Allergies: 15:15 No Known Allergies; me1 - PMHx: 15:15 diaphragmatic hernia; Umbilical hernia; me1 - PSHx: 15:15 umbilical hernia repair (Unknown); me1 - Immunization history:: Adult Immunizations up to date. - Infectious Disease History:: Denies. - Social history:: Smoking status: Patient denies any tobacco usage or history of. Screenin:41 [facility] ED Fall Risk Assessment (Adult) History of falling in the last 3 months, bp including since admission No falls in past 3 months (0 pts) Confusion or Disorientation No (0 pts) Intoxicated or Sedated No (0 pts) Impaired Gait No (0 pts) Mobility Assist Device Used No (0 pt) Altered Elimination No (0 pt) Score/Fall Risk Level 0 - 2 = Low Risk Oriented to surroundings. Abuse screen: Denies threats or abuse. Denies injuries from another. Nutritional screening: No deficits noted. Tuberculosis screening: No symptoms or risk factors identified. Assessment: 16:41 Reassessment: Patient appears in no apparent distress at this time. Patient is alert, bp oriented x 3, equal unlabored respirations, skin warm/dry/pink. 18:27 GI: Bowel sounds present X 4 quads. Abd is soft and non tender X 4 quads. bp Vital Signs: 15:12 BP 130 / 84; Pulse 80; Resp 18; Temp 98.5; Pulse Ox 97% ; Weight 78.02 kg; Height 5 ft. me1 5 in. ; Pain 10/10; 15:12 Body Mass Index 28.62 (78.02 kg, 165.1 cm) me1 15:12 Pain Scale: Adult me1 ED Course: 14:47 Patient arrived in ED. cj3 14:47 Samira Carr FNP-C is PHCP. kb 14:47 Nitin Rivero MD is Attending Physician. kb 15:14 Triage completed. me1 15:15 Arm band placed on Patient placed in waiting room. me1 15:40 CT Stone Protocol In Process Unspecified. EDMS 16:31 Daniel Guzman, RN is Primary Nurse. bp 16:41 Patient has correct armband on for positive identification. bp 16:53 Initial lab(s) drawn, by ne, sent to lab. Urine collected: clean catch specimen, carlee bp colored. 18:27 No provider procedures requiring assistance completed. Patient did not have IV access bp during this emergency room visit. Administered Medications: 18:11 CANCELLED (Other Intervention Used): ns 0.9% 500 ml 500 ml IV at 1 bolus once; to be bp given as a bolus over 30 minutes 18:26 Drug: Acetaminophen-Codeine PO (300 mg-30 mg) 1 tablet PO once; RASS on ADMIN: Combtv4, bp Very Agttd3, Agttd2, Rstlss1, AlertClm0, Drwsy-1, Lt Sdtn-2, Mod Sdtn-3, Dp Sdtn-4, UnArsble-5 Route: PO; 18:27 Follow up: Response: No adverse reaction bp 18:26 Drug: predniSONE PO 40 mg PO once Route: PO; bp 18:26 Follow up: Response: No adverse reaction bp Medication: 16:41 VIS not applicable for this client. bp Outcome: 18:18 Discharge ordered by . stanislav 18:27 Discharged to home ambulatory, with family, bp 18:27 Condition: stable 18:27 Discharge instructions given to patient, Instructed on discharge instructions, follow up and referral plans. medication usage, Demonstrated understanding of instructions, follow-up care, medications, Prescriptions given X 3, 18:28 Patient left the ED. bp Signatures: Dispatcher [employer] EDSamira Butt, KIMBERLEYC SHERI-Daniel Schumacher RN RN bp Viridiana Vuong, CARY RN me1 Yvonne Beltran cj3
--- NOTE | 2024-05-01 18:18 | EDPHYS ---
Physician Documentation [facility] Name: Jessi Silva Age: 68 yrs Sex: Female : 1955 Arrival Date: 05/01/2024 Time: 14:42 Bed 12 Private MD: ED Physician Nitin Rivero HPI: 05/01 18:14 This 68 yrs old Female presents to ER via Ambulatory with complaints of Possible Kidney kb Stone. 18:14 Patient is a 68-year-old female who presents for left low back pain that started 4 days kb ago. Reports she has vomited once a day with the exception of today due to pain. Denies urinary symptoms, fever, injury, diarrhea, abd pain. . Historical: - Allergies: 15:15 No Known Allergies; me1 - PMHx: 15:15 diaphragmatic hernia; Umbilical hernia; me1 - PSHx: 15:15 umbilical hernia repair (Unknown); me1 - Immunization history:: Adult Immunizations up to date. - Infectious Disease History:: Denies. - Social history:: Smoking status: Patient denies any tobacco usage or history of. ROS: 18:15 Constitutional: As per HPI kb Exam: 18:15 Constitutional: This is a well developed, well nourished patient who is awake, alert, kb and in no acute distress. Head/Face: Normocephalic, atraumatic. ENT: Moist Mucous membranes Cardiovascular: Regular rate Respiratory: Respirations even and unlabored. No increased work of breathing. Talking in full sentences Abdomen/GI: Soft, non-tender. No distention Back: No spinal tenderness. No costovertebral tenderness. Full range of motion. Skin: Warm, dry with normal turgor. Normal color. MS/ Extremity: Pulses equal, no cyanosis. Neurovascular intact. Full, normal range of motion. Neuro: Awake and alert, GCS 15, oriented to person, place, time, and situation. Vital Signs: 15:12 BP 130 / 84; Pulse 80; Resp 18; Temp 98.5; Pulse Ox 97% ; Weight 78.02 kg; Height 5 ft. me1 5 in. ; Pain 10/10; 15:12 Body Mass Index 28.62 (78.02 kg, 165.1 cm) me1 15:12 Pain Scale: Adult me1 MDM: 14:47 Medical Screening Exam initiated kb 18:16 Differential diagnosis: uti, kidney stone. Data reviewed: vital signs, nurses notes. kb Counseling: I had a detailed discussion with the patient and/or guardian regarding the historical points, exam findings, and any diagnostic results supporting the discharge/admit diagnosis, lab results, radiology results, the need for outpatient follow up, a family practitioner, to return to the emergency department if symptoms worsen or persist or if there are any questions or concerns that arise at home. 18:17 ED course: Pt states she prefers to drink fluids at home instead of getting an IV for kb fluids. . 05/01 15:17 Order name: CBC with Diff kb 05/01 15:17 Order name: CMP; Complete Time: 17:31 kb 05/01 15:17 Order name: Lipase; Complete Time: 17:31 kb 05/01 15:17 Order name: Urinalysis w/ reflexes; Complete Time: 17:14 kb 05/01 15:17 Order name: CT Stone Protocol; Complete Time: 17:31 kb 05/01 15:17 Order name: IV Saline Lock; Complete Time: 16:53 kb 05/01 15:17 Order name: Labs collected and sent; Complete Time: 16:53 kb Administered Medications: 18:11 CANCELLED (Other Intervention Used): ns 0.9% 500 ml 500 ml IV at 1 bolus once; to be bp given as a bolus over 30 minutes 18:26 Drug: Acetaminophen-Codeine PO (300 mg-30 mg) 1 tablet PO once; RASS on ADMIN: Combtv4, bp Very Agttd3, Agttd2, Rstlss1, AlertClm0, Drwsy-1, Lt Sdtn-2, Mod Sdtn-3, Dp Sdtn-4, UnArsble-5 Route: PO; 18:27 Follow up: Response: No adverse reaction bp 18:26 Drug: predniSONE PO 40 mg PO once Route: PO; bp 18:26 Follow up: Response: No adverse reaction bp Disposition Summary: 05/01/24 18:18 Discharge Ordered Notes: Location: Home kb Condition: Stable kb Diagnosis - Low back pain kb Followup: kb - With: Emergency Department - When: As needed - Reason: Worsening of condition Followup: kb - With: Private Physician - When: 2 - 3 days - Reason: Recheck today's complaints, Continuance of care, Re-evaluation by your physician Discharge Instructions: - Discharge Summary Sheet kb - Musculoskeletal Pain kb Forms: - Medication Reconciliation Form kb - Antibiotic Education kb - Prescription Opioid Use kb - Patient Portal Instructions kb - Leadership Thank You Letter kb Prescriptions: - Prednisone 20 mg Oral Tablet - take 1 tablet ORAL route once daily for 5 days; 5 tablet; Refills: 0, Product kb Selection Permitted - Diclofenac Sodium 75 mg Oral tablet, delayed release (enteric coated) - take 1 tablet ORAL route 2 times per day As needed; 30 tablet; Refills: 0, kb Product Selection Permitted - orphenadrine citrate 100 mg Oral Tablet Sustained Release - take 1 tablet ORAL route 2 times per day As needed; 20 tablet; Refills: 0, kb Product Selection Permitted Addendum: 05/02/2024 20:20 I was immediately available for consultation during this patient's visit. I did not e c2 personally see the patient or discuss the patient with the ARNOLD. . Signatures: Dispatcher [employer] [facility] Samira Carr, SHERI-C CREDENTIALING ANALYST-Daniel Schumacher, CARY RN bp Viridiana Vuong RN RN me1 Nitin Rivero MD MD ec2 Corrections: (The following items were deleted from the chart) 05/01 15:18 15:18 Stone Protocol+[email or web address] ordered. [facility] 18:11 17:57 NS 0.9% IV 500 ml 500 ml IV at 1 bolus once; to be given as a bolus over 30 bp minutes ordered. kb
[2024-05-01] MEDS ORDERED: predniSONE 20 MG TAB ONE (18:20)
[2024-05-01] MEDS ORDERED: CODEINE 30MG/APAP 300MG TAB ONE (18:21)
[2024-05-01 19:08] VITALS: BP 130/84; TEMP 98.5; O2SAT 97
[2024-05-01 20:09] LABS: White Blood Cell Scan OK (OK)
[2024-05-01 20:10] LABS: Blood Morphology Comment NOT SEEN (NOT SEEN); Platelet Estimate ADEQ
== END 2024-05-01 18:28 | disposition home or self-care (01) ==
LOC: ER 14:42
DX: M54.50 Low back pain, unspecified (principal)
CPT/HCPCS: 85025; 81001; 36415; 83690; 80053; 76377; 74176; J7512